=== PATIENT | female | born 1990 | race Caucasian/White ===

== ENCOUNTER → 2017-04-15 10:20 | Outpatient (CLI) | payer MEDICAID, SELFPAY ==
[2017-04-15 11:13] LABS: ALB/GLOB Ratio 0.9 RATIO (0.9-2.4); AST(SGOT) 14 U/L (15-37); Alanine Aminotransfer ALT/SGPT 29 U/L (13-56); Albumin, Serum 3.5 g/dL (3.2-5.0); Alkaline Phosphatase 62 U/L (45-117); Anion Gap 10 (5-15); BUN 9 mg/dL (7-18); BUN/Creat Ratio 11.2 RATIO (10-20); Calcium,Total 8.7 mg/dL (8.5-10.1); Chloride 108 mmol/L (98-107); Cholesterol 160 mg/dL (200); EST Glomerular Filtration Rate 90 mL/min (>60); Est Glom Filt Rate - Afr Amer 109 mL/min (>60); Globulin 3.7 g/dL (2.2-4.2); Glucose 101 mg/dL (74-106); High Density Lipoprotein 33 mg/dL; Protein, Total 7.2 g/dL (6.4-8.2); Sodium Level 139 mmol/L (136-145); Triglycerides 77 mg/dL; Very Low Density Lipoprotein 15 mg/dL (5-40)
== END ==
PROVIDERS: Family Provider Internal Medicine; PCP Internal Medicine; Visit Provider Family Medicine
DX: Z13.1 Encounter for screening for diabetes mellitus (principal); Z13.220 Encounter for screening for lipoid disorders
CPT/HCPCS: 80053; 80061

== ENCOUNTER → 2017-04-15 10:33 | Outpatient (CLI) | payer MEDICAID, SELFPAY | PROVIDERS: Family Provider Internal Medicine; PCP Internal Medicine; Visit Provider Family Medicine | DX: Z13.1 Encounter for screening for diabetes mellitus (principal); Z13.220 Encounter for screening for lipoid disorders ==

== ENCOUNTER → 2017-12-17 17:13 | Outpatient (CLI) | payer MEDICAID, SELFPAY ==
[2017-12-17 17:54] LABS: Hemoglobin A1c 5.6 % (4.2-6.3)
[2017-12-17 18:06] LABS: Free T3 2.7 pg/mL (2.18-3.98); T4 Free Direct 0.95 ng/dL (0.76-1.46); Thyroid Stim Hormone (TSH) 1.08 uIU/mL (0.358-3.74)
== END ==
PROVIDERS: Referring Provider Family Medicine; Visit Provider Family Medicine
DX: G44.89 Other headache syndrome (principal); R73.9 Hyperglycemia, unspecified
CPT/HCPCS: 83036; 84439; 84443; 84481

== ENCOUNTER 2018-06-27 20:00 | Emergency (ER) | payer BC, SELFPAY ==
[2018-06-27 20:02] VITALS: BP 144/78; PULSE 100; RESP 18; TEMP 36.4; O2SAT 99; BMI 43.5
--- NOTE | 2018-06-27 20:20 | RAD_ITS ---
STUDY: X-RAY - RIGHT ANKLE REASON FOR EXAM: Female, 27 years old. Trauma TECHNIQUE: 3 view(s) of the ankle. COMPARISON: None. FINDINGS: Normal visualized distal tibia and fibula. Normal medial and lateral malleoli. Normal tibiotalar articulation and ankle mortise. Normal visualized talus and calcaneus. The visualized subtalar, talonavicular, calcaneocuboid and tarsal articulations are normal. There is soft tissue swelling over the lateral malleolus. RAD/Ankle min 3 Views IMPRESSION: There is no evidence of fracture or dislocation. There is soft tissue swelling over the lateral malleolus. Electronically Signed: Leonel Lazaro MD at 20:47 EDT , Service support ,
--- NOTE | 2018-06-27 20:21 | ED.DCSUM_ITS ---
- ER Visit Summary Date of Service: 06/27/18 Chief Complaint: Ankle injury History of Present Illness: The patient is a 27 F who was bouncing a bounce house when she sustained an inversion injury to the right ankle. She also notes some rug barnes to the bilateral forearms. No other injuries. Physical Examination: Afebrile vital signs stable Gen: Well-nourished well-developed Head: Normocephalic atraumatic Eyes: Perrl EOMI ENT: TMs clear no rhinorrhea moist mucous membranes Neck: Supple no lymphadenopathy no JVD nontender CVS: Regular rate rhythm no murmurs normal S1-S2 Respiratory: No distress clear to auscultation bilaterally chest nontender Abdomen: Soft nontender nondistended normal bowel sounds no masses Back: Nontender Extremity: There is swelling over the lateral malleolus. No fifth metatarsal pain no fibular head pain. No medial malleolar pain the Achilles tendon is intact. There are bilateral superficial abrasions to the volar aspect of the forearms. Skin: Normal color no rash Neuro: alert orientated ?3 CN II-XII intact normal strength sensation reflexes gait cerebellar Psych: Normal affect normal mood Test Results: X-rays were obtained. These were negative for fracture. Noted soft tissue swelling. Emergency Department Course and Treatment: I spoke with Dr. Mendez from podiatry. Concerned about the possibility of a nondisplaced Morrow B fracture. We reviewed the films and we will place her in a walking boot. She will follow-up in the office. Impression: 1. Right ankle sprain This note was generated with Scaffold dictation software. It may contain incorrect words, spelling, and punctuation that were not noted in review of the chart prior to signing ED Disposition - Plan for ED Patient: Disposition: Home or Assisted Living Instructions: ED Sprain Ankle W X Ray Prescriptions: Hydrocodone Bitart/Apap 5-325 [[place] 5MG-325MG] 1 tab PO Q6H PRN PRN 3 Days #10 tab PRN Reason: Pain Referrals: Dewey Mendez DPM [STAFF PHYSICIAN] - (call to arrange follow up)
[2018-06-27] MEDS: HYDROcodone Bitartrate/Apap 5/325 Tablet PO (22:05)
--- NOTE | 2018-06-27 22:27 | ED.RN ---
PT FAILED AIR CAST, UNABLE TO AMBULATE. MD ORDERED WALKING BOOT AND CRUTCHES, PT ABLE TO AMBULATE WITH BOOT IN PLACE AND CRUTCHES FOR ASSISTANCE. AMBULATED OUT OF DEPT.
== END 2018-06-27 22:27 | disposition home or self-care (01) ==
PROVIDERS: Emergency Provider Emergency Medicine; Family Provider Family Medicine; PCP Family Medicine
DX: S93.401A Sprain of unspecified ligament of right ankle, initial encounter (principal); S50.812A Abrasion of left forearm, initial encounter; S50.811A Abrasion of right forearm, initial encounter; X50.1XXA Overexertion from prolonged static or awkward postures, initial encounter; Y93.9 Activity, unspecified; Y92.9 Unspecified place or not applicable; Z72.0 Tobacco use
CPT/HCPCS: 73610; 99283

== ENCOUNTER 2018-10-19 17:11 | Emergency (ER) | payer BC, SELFPAY ==
[2018-10-19 17:14] VITALS: BP 130/81; PULSE 81; RESP 14; TEMP 36.1; O2SAT 95; BMI 34.4
--- NOTE | 2018-10-19 17:34 | ED.VIS.GEN ---
History of Present Illness Chief Complaint: Lower Extremity Injury Detail of Chief Complaint: Right leg redness and swelling Informant: Patient Onset: Today Context: Gradual Onset Current Severity: Moderate Maximum Severity: Moderate Narrative: Patient presents with redness and swelling to the right lower extremity. She stated this morning she noted a small red area on the back of her right lower leg. She denies being bitten by anything or any other injury. The redness has spread and become more painful. She denies history of blood clots. Past Medical History - Allergies and Home Meds Allergies/Adverse Reactions: Allergies morphine Allergy (Verified 10/19/18 17:12) Other Primary Care Physician: Miranda Reyes MD [Primary Care Provider] - Prior records reviewed: Yes Past Medical History: - - Reviewed Smoking Status: Current every day smoker Review of Systems General: Denies: Chills, Fever ENT: Denies: Bilateral ear pain Cardiovascular: Denies: Chest pain Respiratory: Denies: Dyspnea Gastrointestinal: Denies: Abdominal pain Musculoskeletal: Reports: Myalgias, Swelling, Extremity Pain Skin: Reports: Rash Neurological: Denies: Headache Hematologic: Denies: Easy bruising Allergy: Denies: Uticaria Physical Exam Vital Signs/Narrative: Vital Signs Temp Pulse Resp BP Pulse Ox 10/19/18 17:14 96.9 F L 81 14 130/81 H 95 Inital Vital Signs reviewed: Yes General: Well nourished, Well developed Head: Normocephalic ENT: Moist mucous membranes Neck: Supple, Nontender Cardiovascular: Regular rate, Regular rhythm Respiratory: No distress, CTA bilaterally Abdomen: Soft Extremities: Tenderness - Tenderness palpation over the right calf. Minimal edema noted. Patchy areas of erythema are noted. No open wounds are noted. Neurological: Alert, Oriented x3 Psychological: Normal affect Diagnostic/Tx/Re-eval - Medical Decision Making Venous ultrasound of the right leg is obtained and reveals no evidence of DVT. Test results are discussed with the patient at bedside. She continues to have some erythema and warmth, although it is slightly improved after having her feet elevated. She will be covered with doxycycline. ED Disposition - Plan for ED Patient: Disposition: Home or Assisted Living Diagnosis: Cellulitis Instructions: Cellulitis Prescriptions: Doxycycline 100 mg PO BID #20 capsule Referrals: Miranda Reyes MD [Primary Care Provider] - 1 Week
--- NOTE | 2018-10-19 17:39 | US_ITS ---
STUDY: VENOUS DOPPLER ULTRASOUND - RIGHT LOWER EXTREMITY REASON FOR EXAM: Female, 28 years old. Pain and swelling TECHNIQUE: Ultrasound evaluation of the deep vein system to include benavides-scale imaging and compression was performed. Benavides-scale imaging and Doppler sonographic evaluation, including duplex spectral analysis and qualitative color flow sonography, was performed. COMPARISON: None. FINDINGS: Common Femoral Vein: Normal compression, spontaneity and augmentation. Normal color Doppler. Common Femoral Vein/Greater Saphenous Junction: Normal compression, spontaneity and augmentation. Normal color Doppler. Femoral Proximal: Normal compression, spontaneity and augmentation. Normal color Doppler. Femoral Middle: Normal compression, spontaneity and augmentation. Normal color Doppler. Femoral Distal: Normal compression, spontaneity and augmentation. Normal color Doppler. Popliteal Vein: Normal compression, spontaneity and augmentation. Normal color Doppler. Posterior Tibial Vein: Normal compression, spontaneity and augmentation. Normal color Doppler. Peroneal Vein: Normal compression, spontaneity and augmentation. Normal color Doppler. US/Venous Duplex Imag/Limited/Uni IMPRESSION: Normal venous Doppler ultrasound of the lower extremity. No evidence of DVT on the right. Electronically Signed: Marlon Manzo MD at 18:23 EDT Tel [phone], Service support ,
[2018-10-19 18:27] VITALS: BP 122/85; PULSE 66; RESP 18; TEMP 36.7; O2SAT 99
[2018-10-19] MEDS: Doxycycline 100 MG CAPSULE PO (18:27)
== END 2018-10-19 18:33 | disposition home or self-care (01) ==
LOC: ED 18:22
PROVIDERS: Emergency Provider Emergency Medicine; Family Provider Family Medicine; PCP Family Medicine
DX: L03.115 Cellulitis of right lower limb (principal); F17.200 Nicotine dependence, unspecified, uncomplicated
CPT/HCPCS: 93971; 99283

== ENCOUNTER → 2020-01-11 | Outpatient (CLI) | payer BC, SELFPAY ==
[2020-01-12 10:14] LABS: Absolute Lymphocyte Count 2.86 X10^3/uL (0.83-4.51); Absolute Neutrophil Count 5.7 X10^3/uL (2.0-7.7); Basophil# 0.07 X10^3/uL; Basophil% 0.7 % (0-1); Eosinophil# 0.22 X10^3/uL; Eosinophils% 2.3 % (0-5); Hematocrit 43.8 % (37-47); Hemoglobin 14.2 g/dL (12.0-15.0); Lymphocyte # 2.86 X10^3/ul (4.0); Mean Corp Hgb Conc 32.4 g/dL (32-36); Mean Corpuscular Hgb 28.2 pg (27.0-32.0); Mean Corpuscular Volume 86.9 fL (81-99); Mean Platelet Vol. 12.6 fl (6.2-12.0); Monocyte# 0.65 X10^3/uL; Monocyte% 6.8 % (0-10); NRBC Flagged by Analyzer 0 % (0-5); Neutrophil # 5.71 X10^3/uL (2.7-7.7); Neutrophil % 59.9 % (47-70); Platelet Count 225 K/mm3 (150-450); RBC Distribution Width CV 12.3 % (11.6-14.6); RBC Distribution Width SD 39.2 fl (35.1-43.9); Red Blood Count 5.04 M/mm3 (4.2-5.4); White Blood Count 9.5 K/mm3 (4.4-11.0)
[2020-01-12 10:37] LABS: AST(SGOT) 11 U/L (15-37); Alanine Aminotransfer ALT/SGPT 34 U/L (13-56); Albumin, Serum 3.7 g/dL (3.2-5.0); Alkaline Phosphatase 63 U/L (45-117); Anion Gap 4 (5-15); BUN 11 mg/dL (7-18); BUN/Creat Ratio 13.2 RATIO (10-20); Calcium,Total 8.9 mg/dL (8.5-10.1); Chloride 107 mmol/L (98-107); Cholesterol 198 mg/dL (200); Creatinine, Serum 0.84 mg/dL (0.55-1.02); EST Glomerular Filtration Rate 84 mL/min (>60); Est Glom Filt Rate - Afr Amer 102 mL/min (>60); Globulin 3.6 g/dL (2.2-4.2); Glucose 92 mg/dL (74-106); High Density Lipoprotein 41 mg/dL; Potassium 4.2 mmol/L (3.5-5.1); Protein, Total 7.3 g/dL (6.4-8.2); Sodium Level 140 mmol/L (136-145); T4 Free Direct 1.05 ng/dL (0.76-1.46); Thyroid Stim Hormone (TSH) 1.38 uIU/mL (0.358-3.74); Triglycerides 130 mg/dL; Very Low Density Lipoprotein 26 mg/dL (5-40)
== END | disposition home or self-care (01) ==
LOC: LABSPEC 01-12 09:36
PROVIDERS: PCP Family Medicine; Referring Provider Family Medicine; Visit Provider Family Medicine
DX: Z00.00 Encounter for general adult medical examination without abnormal findings (principal); R53.83 Other fatigue; N91.2 Amenorrhea, unspecified
CPT/HCPCS: 80053; 80061; 83001; 84439; 84443; 84481; 85025

== ENCOUNTER → 2020-02-09 | Outpatient (CLI) | payer BC, SELFPAY ==
[2020-02-09 14:42] VITALS: BMI 43.0
[2020-02-09 18:56] LABS: Chlamydia Trachomatis by PCR Negative (Negative); Neisserai gonorrhoeae by PCR Negative (Negative); Probe Check PASS; Sample Adequacy Control PASS; Specimen Processing Control PASS
[2020-02-14 21:36] LABS: HPV APTIMA, High Risk Negative (Negative)
== END | disposition home or self-care (01) ==
LOC: LABSPEC 15:57
PROVIDERS: PCP Family Medicine; Referring Provider Nurse Practitioner Women's Health; Visit Provider Nurse Practitioner Women's Health
DX: Z11.3 Encounter for screening for infections with a predominantly sexual mode of transmission (principal); Z12.4 Encounter for screening for malignant neoplasm of cervix
CPT/HCPCS: 87491; 87591; 87624; 88175; G0145

== ENCOUNTER → 2021-07-02 | Outpatient (CLI) | payer OTHER, SELFPAY ==
[2021-07-04 22:06] LABS: Chlamydia By Nucleic Acid AMP Negative (Negative)
[2021-07-05 11:08] LABS: Gonococcus By Nucleic Acid AMP Negative (Negative)
== END | disposition home or self-care (01) ==
LOC: LABSPEC 07-03 09:42
PROVIDERS: PCP Family Medicine; Visit Provider Nurse Practitioner Women's Health
DX: Z20.2 Contact with and (suspected) exposure to infections with a predominantly sexual mode of transmission (principal)
CPT/HCPCS: 87491; 87591

== ENCOUNTER → 2021-07-10 | Outpatient (CLI) | payer OTHER, SELFPAY ==
[2021-07-10 11:06] LABS: hCG Titer Quant., Serum 65 mIU/mL (1-3)
[2021-07-10 11:13] LABS: Thyroid Stim Hormone (TSH) 1.37 uIU/mL (0.358-3.74)
[2021-07-10 11:42] LABS: HIV - WCH Non-Reactive (Nonreactive); Hepatitis C Antibody Non-Reactive (Nonreactive); Syphilis Antibodies Non-reactive; Vitamin D,25 Hydroxy 24.3 ng/mL
[2021-07-11 16:59] LABS: HSV 2 IgG < 0.91 index (0.00-0.90)
== END | disposition home or self-care (01) ==
LOC: PAVLAB 09:45
PROVIDERS: PCP Family Medicine; Referring Provider Nurse Practitioner Women's Health; Visit Provider Nurse Practitioner Women's Health
DX: N91.2 Amenorrhea, unspecified (principal); Z13.21 Encounter for screening for nutritional disorder; Z20.2 Contact with and (suspected) exposure to infections with a predominantly sexual mode of transmission; Z13.29 Encounter for screening for other suspected endocrine disorder
CPT/HCPCS: 36415; 82306; 84443; 84702; 86695; 86696; 86703; 86780; 86803

== ENCOUNTER 2021-07-15 14:20 | Emergency (ER) | payer OTHER, SELFPAY ==
[2021-07-15 14:21] VITALS: BP 145/82; PULSE 90; RESP 18; TEMP 37.1; O2SAT 98; BMI 43.9
--- NOTE | 2021-07-15 14:38 | ED.RN ---
PT STATES SHE IS RH-
--- NOTE | 2021-07-15 14:55 | EDS_ITS ---
HPI HPI - Female History of Present Illness Chief Complaint: Vag Bld, Preg Narrative Narrative: Patient is a G2, P0 at approximately 5 weeks gestation who presents with vaginal bleeding/spotting that began a few hours ago. She notes that she is Rh- and was told by her DIRECTOR OF USER EXPERIENCE to present to the emergency department if she ever experience vaginal bleeding. She states she is having vaginal cramping but denies any lightheadedness, chest pain, shortness of breath. She is only spotting. No passing of clots or tissue. She has been nauseated throughout her but denies any recent vomiting. No dysuria or hematuria. 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 HEENT: No sore throat. No neck pain. No loss of vision. No rhinorrhea. Cardiovascular: No chest pain. No palpitations. No pedal edema. Respiratory: No cough, no shortness of breath. Abdominal: No abdominal pain. Intermittent nausea. No vomiting. Genitourinary: No dysuria. No hematuria. Genital bleeding/spotting with . Musculoskeletal: No myalgias. No arthralgias. Neurologic: No headaches. No dizziness. No lightheadedness. Skin: No rash. No change in color. Psychiatric: No depression. No anxiety. EXAM Physical Exam Narrative Exam Narrative: Afebrile. Vital signs noted. HEENT: Normocephalic. Atraumatic. PERRL, EOMI. Neck soft and supple. No point tenderness or step off. Cardiovascular: Regular rate and rhythm. No murmurs, rubs, or gallops appreciated. Respiratory: No tachypnea. Lungs clear to auscultation bilaterally. Gastrointestinal: Abdomen soft, nontender, with normoactive bowel sounds. No rebound or guarding. Neurological: Awake. Alert. Nonfocal, nonlateralizing. Skin: No rash. Normal color. No pallor. Musculoskeletal: No pedal edema. Full range of motion extremities. Const Vital Signs: 07/15/21 14:21 07/15/21 16:44 07/15/21 18:16 Temperature 98.8 F Temperature Source Temporal Pulse Rate 90 84 87 Respiratory Rate 18 17 16 Blood Pressure 145/82 H Blood Pressure Mean 103 Pulse Ox 98 99 Oxygen Delivery Method Room Air Room Air MDM MDM MDM Narrative Medical decision making narrative: Comprehensive work-up was pursued. I will order hCG quantitative measurement along with ABO Rh, and CBC. Chaperoned pelvic exam will be performed. Transvaginal ultrasound will also be performed. CBC shows normal white count of 10.0, hemoglobin normal at 13.8, normal platelet count of 219. Blood type is a negative. hCG quantitative measurement is 543. Urinalysis shows no evidence of infection. Ultrasound transvaginally was performed, but given her low quantitative measurement less than 2000, it was expected that nothing would be seen on ultrasound. Ectopic cannot be ruled out. However, the patient is not having adnexal pain. I discussed the patient with Dr. Love on-call for her DIRECTOR OF USER EXPERIENCE. Patient will have follow- up appointment in 2 days where she will have her quantitative beta-hCG measured again. She will receive RhoGAM here today. Of note, patient did state that she had a beta-hCG in the 60s a few days ago so this has more than doubled. I feel that after her RhoGAM, she can be discharged to follow-up with DIRECTOR OF USER EXPERIENCE in 2 days for quantitative beta hCG repeat, and further on down the road for an ultrasound that would be repeated. Disposition is discharged home in stable condition. Lab Data Attestation: I reviewed the patient's lab results. Labs: Laboratory Results - last 24 hr 07/15/21 07/15/21 07/15/21 15:30 15:30 15:30 WBC 10.0 RBC 4.82 Hgb 13.8 Hct 42.5 MCV 88.2 MCH 28.6 MCHC 32.5 RDW Std Deviation 40.2 RDW Coeff of Ester 12.5 Plt Count 219 MPV 11.9 Immature Gran % (Auto) 0.600 Neut % (Auto) 62.1 Lymph % (Auto) 29.1 Lincoln % (Auto) 6.1 Eos % (Auto) 1.5 Baso % (Auto) 0.6 Absolute Neuts (auto) 6.2 Absolute Lymphs (auto) 2.91 Nucleated RBC % 0 HCG, Quant 543 H Urine Color Urine Clarity Urine pH Ur Specific [place] Urine Protein Urine Glucose (UA) Urine Ketones Urine Occult Blood Urine Nitrite Urine Bilirubin Urine Urobilinogen Ur Leukocyte Esterase Urine RBC Urine WBC Ur Squamous Epith Cells Urine Bacteria Urine Mucus Blood Type A NEGATIVE 07/15/21 16:10 WBC RBC Hgb Hct MCV MCH MCHC RDW Std Deviation RDW Coeff of Ester Plt Count MPV Immature Gran % (Auto) Neut % (Auto) Lymph % (Auto) [place] % (Auto) Eos % (Auto) Baso % (Auto) Absolute Neuts (auto) Absolute Lymphs (auto) Nucleated RBC % HCG, Quant Urine Color Straw Urine Clarity Clear Urine pH 6.5 Ur Specific [place] 1.010 Urine Protein Negative Urine Glucose (UA) Normal Urine Ketones Negative Urine Occult Blood 10 H Urine Nitrite Negative Urine Bilirubin Negative Urine Urobilinogen Normal Ur Leukocyte Esterase Negative Urine RBC 0 SEEN Urine WBC 0 SEEN Ur Squamous Epith Cells 0 SEEN Urine Bacteria 0 SEEN Urine Mucus 0 SEEN Blood Type Radiography Diagnostic Testing: Clinical Impression(s) from Imaging Studies Obstetrics Ultrasound 07/15/21 14:56 IMPRESSION: of unknown location. No intrauterine gestational sac or adnexal ectopic visualized. Recommend serial beta hCGs and follow-up OB ultrasound in 1-2 weeks. Electronically Signed: Fercho Dunn MD at 17:29 EDT , Discharge Plan Triage Chief Complaint: Vag Bld, Preg ED Provider: Judson Arreola Dx/Rx/DC Orders Clinical Impression: Vaginal bleeding during , Threatened Instructions: Bleeding During Early , ED Possible Miscarriage ... Prescriptions: No Action multivitamin Tablet 1 tab PO DAILY RF: 0 Primary Care Provider: Miranda Reyes Referrals: Miranda Reyes MD [Primary Care Provider] - Zoya Love MD [STAFF PHYSICIAN] - 2 Days Activity Restrictions/Additional Instructions: You have a low beta hCG measurement. You will have to have blood work redrawn in 2 days to see if it doubles. Follow-up with DIRECTOR OF USER EXPERIENCE/Dr. Stas Bhatti in 2 days. You did receive RhoGAM today. Disposition Disposition: Home, Self Care Discharge Date/Time: 07/15/21 19:57
--- NOTE | 2021-07-15 14:56 | US_ITS ---
INDICATION: Vaginal Bleeding witih EXAMINATION: US OB Transvaginal TECHNIQUE: Transabdominal pelvic ultrasound was performed. Grayscale, spectral waveform, and color flow Doppler evaluation of the adnexa. COMPARISON: None. FINDINGS: UTERUS: Measures 8.7 x 5.0 4.6 cm. RIGHT OVARY: Measures 2.5 x 2.1 x 1.7 cm. Normal. LEFT OVARY: Measures 2.2 x 2 x 1.7 cm. Normal. FREE FLUID: None. INTRAUTERINE GESTATIONAL SAC(s) (size/shape): Not visualized. No adnexal ectopic visualized. US/Transvaginal w/Preg US IMPRESSION: of unknown location. No intrauterine gestational sac or adnexal ectopic visualized. Recommend serial beta hCGs and follow-up OB ultrasound in 1-2 weeks. Electronically Signed: Fercho Dunn MD at 17:29 EDT ,
[2021-07-15 15:42] LABS: Absolute Lymphocyte Count 2.91 X10^3/uL (0.83-4.51); Absolute Neutrophil Count 6.2 X10^3/uL (2.0-7.7); Basophil# 0.06 X10^3/uL; Basophil% 0.6 % (0-1); Eosinophil# 0.15 X10^3/uL; Eosinophils% 1.5 % (0-5); Hematocrit 42.5 % (37-47); Hemoglobin 13.8 g/dL (12.0-15.0); Lymphocyte # 2.91 X10^3/ul (0.83-4.51); Lymphocyte % 29.1 % (19-41); Mean Corp Hgb Conc 32.5 g/dL (32-36); Mean Corpuscular Hgb 28.6 pg (27.0-32.0); Mean Corpuscular Volume 88.2 fL (81-99); Mean Platelet Vol. 11.9 fl (6.2-12.0); Monocyte# 0.61 X10^3/uL; Monocyte% 6.1 % (0-10); NRBC Flagged by Analyzer 0 % (0-5); Neutrophil % 62.1 % (47-70); Platelet Count 219 K/mm3 (150-450); RBC Distribution Width CV 12.5 % (11.6-14.6); RBC Distribution Width SD 40.2 fl (35.1-43.9); Red Blood Count 4.82 M/mm3 (4.2-5.4)
[2021-07-15 15:59] LABS: hCG Titer Quant., Serum 543 mIU/mL (1-3)
[2021-07-15 16:15] LABS: Bacteria 0 SEEN /hpf (None Seen); Mucous, Urine 0 SEEN /hpf (<or=2+); Red Blood Cells-Urine 0 SEEN /hpf (0-5); Squamous Epithelial Cells - UA 0 SEEN /hpf (5-10); White Blood Cells 0 SEEN /hpf (0-5)
[2021-07-15 16:16] LABS: Color, Urine Straw (Yellow); Glucose, Dipstick Normal (Normal); Ketone-Dipstick Negative (Negative); Leukocyte Esterase-Dipstick Negative /ul (Negative); Nitrite-Dipstick Negative (Negative); Occult Blood-Urine 10 /ul (Negative); Protein-Dipstick Negative (Negative); Urine Bilirubin Dipstick Negative (Negative); Urine Clarity Clear (Clear); Urine Urobilinogen Normal (Normal); Urine pH 6.5 (5.0 - 8.0)
[2021-07-15 16:44] VITALS: PULSE 84; RESP 17; O2SAT 99
[2021-07-15 18:16] VITALS: PULSE 87; RESP 16
== END 2021-07-15 19:57 | disposition home or self-care (01) ==
PROVIDERS: Emergency Provider Emergency Medicine; PCP Family Medicine; Visit Provider Emergency Medicine
DX: O20.0 Threatened abortion (principal); Z3A.01 Less than 8 weeks gestation of pregnancy; O99.331 Smoking (tobacco) complicating pregnancy, first trimester; F17.200 Nicotine dependence, unspecified, uncomplicated
CPT/HCPCS: 76817; 81001; 84702; 85025; 86900; 86901; 90384; 96372; 99283; A4216; J2790

== ENCOUNTER → 2021-07-17 | Outpatient (CLI) | payer OTHER, SELFPAY ==
[2021-07-17 13:36] LABS: hCG Titer Quant., Serum 386 mIU/mL (1-3)
== END | disposition home or self-care (01) ==
LOC: PAVLAB 12:50
PROVIDERS: PCP Family Medicine; Referring Provider Obstetrics & Gynecology; Visit Provider Obstetrics & Gynecology
DX: O20.0 Threatened abortion (principal); Z3A.00 Weeks of gestation of pregnancy not specified
CPT/HCPCS: 36415; 84702

== ENCOUNTER → 2021-07-20 | Outpatient (CLI) | payer OTHER, SELFPAY ==
[2021-07-20 12:00] LABS: hCG Titer Quant., Serum 151 mIU/mL (1-3)
== END | disposition home or self-care (01) ==
PROVIDERS: PCP Family Medicine; Referring Provider Obstetrics & Gynecology; Visit Provider Obstetrics & Gynecology
DX: O20.0 Threatened abortion (principal); Z3A.00 Weeks of gestation of pregnancy not specified
CPT/HCPCS: 36415; 84702

== ENCOUNTER → 2021-07-24 | Outpatient (CLI) | payer OTHER, SELFPAY ==
[2021-07-24 11:59] LABS: hCG Titer Quant., Serum 13 mIU/mL (1-3)
== END | disposition home or self-care (01) ==
LOC: PAVLAB 10:44
PROVIDERS: PCP Family Medicine; Referring Provider Obstetrics & Gynecology; Visit Provider Obstetrics & Gynecology
DX: O20.0 Threatened abortion (principal); Z3A.00 Weeks of gestation of pregnancy not specified
CPT/HCPCS: 36415; 84702

== ENCOUNTER → 2021-08-27 | Outpatient (CLI) | payer MEDICAID, SELFPAY ==
[2021-08-27 18:40] LABS: hCG Titer Quant., Serum 29 mIU/mL (1-3)
== END | disposition home or self-care (01) ==
PROVIDERS: PCP Family Medicine; Visit Provider Obstetrics & Gynecology
DX: N91.2 Amenorrhea, unspecified (principal)
CPT/HCPCS: 36415; 84702

== ENCOUNTER → 2021-08-29 | Outpatient (CLI) | payer MEDICAID, SELFPAY ==
[2021-08-29 13:37] LABS: hCG Titer Quant., Serum 64 mIU/mL (1-3)
== END | disposition home or self-care (01) ==
LOC: PAVLAB 12:46
PROVIDERS: PCP Family Medicine; Referring Provider Obstetrics & Gynecology; Visit Provider Obstetrics & Gynecology
DX: N91.2 Amenorrhea, unspecified (principal)
CPT/HCPCS: 36415; 84702

== ENCOUNTER → 2021-09-04 | Outpatient (CLI) | payer MEDICAID, SELFPAY ==
[2021-09-04 10:48] LABS: hCG Titer Quant., Serum 65 mIU/mL (1-3)
== END | disposition home or self-care (01) ==
LOC: PAVLAB 09:58
PROVIDERS: PCP Family Medicine; Referring Provider Nurse Practitioner Women's Health; Visit Provider Nurse Practitioner Women's Health
DX: O20.0 Threatened abortion (principal); Z3A.00 Weeks of gestation of pregnancy not specified
CPT/HCPCS: 36415; 84702

== ENCOUNTER → 2021-09-06 | Outpatient (CLI) | payer MEDICAID, SELFPAY ==
[2021-09-06 08:36] LABS: Cholesterol 191 mg/dL (200); Glucose 103 mg/dL (74-106); High Density Lipoprotein 32 mg/dL; Triglycerides 170 mg/dL; Very Low Density Lipoprotein 34 mg/dL (5-40); hCG Titer Quant., Serum 22 mIU/mL (1-3)
== END | disposition home or self-care (01) ==
LOC: PAVLAB 07:34
PROVIDERS: Nurse Practitioner Women's Health; PCP Family Medicine; Referring Provider Obstetrics & Gynecology; Visit Provider Obstetrics & Gynecology
DX: O03.9 Complete or unspecified spontaneous abortion without complication (principal); Z13.1 Encounter for screening for diabetes mellitus; Z13.220 Encounter for screening for lipoid disorders
CPT/HCPCS: 36415; 80061; 82947; 84702

== ENCOUNTER → 2021-09-21 | Outpatient (CLI) | payer MEDICAID, SELFPAY ==
[2021-09-21 09:46] LABS: hCG Titer Quant., Serum < 1 mIU/mL (1-3)
[2021-09-24 16:09] LABS: Dilute Prothrombin Time (dPT) 37.8 sec (0.0-47.6); Dilute Russell Viper Venom 38.7 sec (0.0-47.0); PTT-LA 37.4 sec (0.0-51.9); Thrombin Time 17.3 sec (0.0-23.0)
[2021-09-24 16:25] LABS: Anti-Cardiolipin Ab, IgA, Qn < 9 APL U/mL (0-11); Anti-Cardiolipin Ab, IgG, Qn < 9 GPL U/mL (0-14); Anti-Cardiolipin Ab, IgM, Qn 15 MPL U/mL (0-12); Beta-2-Glycoprotein I IgA <9 (0-25); Beta-2-Glycoprotein I IgG <9 (0-20); Beta-2-Glycoprotein I IgM <9 (0-32); Interpretation Comment: (.)
== END | disposition home or self-care (01) ==
PROVIDERS: PCP Family Medicine; Referring Provider Obstetrics & Gynecology; Visit Provider Obstetrics & Gynecology
DX: N96 Recurrent pregnancy loss (principal)
CPT/HCPCS: 36415; 84702; 86146; 86147

== ENCOUNTER 2021-10-03 17:02 | Emergency (ER) | payer MEDICAID, SELFPAY ==
[2021-10-03 17:03] VITALS: BP 97/57; PULSE 99; RESP 16; TEMP 36.7; O2SAT 98; BMI 44.0
--- NOTE | 2021-10-03 18:19 | US_ITS ---
STUDY: VENOUS DOPPLER ULTRASOUND - RIGHT LOWER EXTREMITY REASON FOR EXAM: Female, 31 years old. RT LEG NUMBNESS TINGLING PAIN TECHNIQUE: Ultrasound evaluation of the deep vein system to include benavides-scale imaging and compression was performed. Benavides-scale imaging and Doppler sonographic evaluation, including duplex spectral analysis and qualitative color flow sonography, was performed. COMPARISON: None. FINDINGS: Common Femoral Vein: Normal compression, spontaneity and augmentation. Normal color Doppler. Common Femoral Vein/Greater Saphenous Junction: Normal compression, spontaneity and augmentation. Normal color Doppler. Deep Femoral Vein: Normal compression, spontaneity and augmentation. Normal color Doppler. Femoral Proximal: Normal compression, spontaneity and augmentation. Normal color Doppler. Femoral Middle: Normal compression, spontaneity and augmentation. Normal color Doppler. Femoral Distal: Normal compression, spontaneity and augmentation. Normal color Doppler. Popliteal Vein: Normal compression, spontaneity and augmentation. Normal color Doppler. Posterior Tibial Vein: Normal compression, spontaneity and augmentation. Normal color Doppler. Peroneal Vein: Normal compression, spontaneity and augmentation. Normal color Doppler. There is no demonstrated deep venous thrombosis. US/Venous Duplex Imag/Limited/Uni IMPRESSION: Normal venous Doppler ultrasound of the lower extremity. Electronically Signed: Rishabh Cuba MD at 19:29 EDT Reading Location ID and State: [facility] / [place] , Service support ,
--- NOTE | 2021-10-03 19:25 | EDS_ITS ---
HPI History of Present Illness Chief Complaint: Lower Extremity Injury Informant: patient Narrative Narrative: Patient is a 31-year-old female with history of sciatica with as well as recent diagnosis of antiphospholipid antibody syndrome presenting with worsening right leg pain. Patient states has been going on for the past few weeks has been intermittent however its been more constant over the past few days. She describes as burning in her calf that goes up behind her knee and sometimes into her back. Sometimes she has a sharp pain in her quadricep in her calf. Is on a daily aspirin does not take anything else for the pain. Not sure if she is had swelling of the leg. Denies any injury. Denies any recent trips. Denies any chest pain, shortness of breath or other symptoms. Note she did have sciatica when she was and is not sure if this feels different. Denies any saddle anesthesia, bowel or bladder incontinence. [facility] Medical History HSV-1 infection Home Medications enoxaparin 40 mg/0.4 mL subcutaneous syringe (Lovenox) 40 mg (0.4 mL) subcut DAILY #30 mL 09/27/21 [Rx Last Taken Unknown] Allergy/AdvReac Type Severity Reaction Status Date / Time doxycycline Allergy Intermediate Rash Verified 10/03/21 17:02 morphine Allergy Other Verified 10/03/21 17:02 Family History Father Barretts esophagus Skin cancer Diabetes Hypertension Grandfather Lung cancer Liver cancer Uncle Skin cancer Social History household members: children number of children: 1 current occupational status: employed 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[employer] history of recent travel: No sexually active: No Smoking Status: Light Smoker (<10/day) alcohol intake: current alcohol intake frequency: holidays/special occasions only substance use type: does not use what type of physical activity do you participate in: none seatbelt use: always do you feel safe at home: Yes additional social history: single ROS ROS ED Constitutional Constitutional ED: Denies chills or fever(s) Eyes Eyes: Denies change in vision ENT ENT ED: Denies rhinorrhea or sore throat Cardiovascular Cardiovascular: Denies chest pain or palpitations Respiratory/Chest Respiratory/Chest: Denies dyspnea or dyspnea on exertion Gastrointestinal Gastrointestinal: Denies abdominal pain Genitourinary Genitourinary ED: Denies dysuria or urinary frequency Musculoskeletal Musculoskeletal: Reports back pain and myalgias; Denies arthralgias or neck pain Integumentary Denies rash Neurologic Neurologic: Reports paresthesias; Denies headache(s) or weakness Psychiatric Psychiatric: Denies anxiety or depression Hematologic/Lymphatic Hematologic/Lymphatic: Denies easy bleeding or easy bruising EXAM Physical Exam Const Vital Signs: 10/03/21 17:03 Temperature 98.1 F Temperature Source Temporal Pulse Rate 99 Respiratory Rate 16 Blood Pressure 97/57 L Blood Pressure Mean 70 Pulse Ox 98 Oxygen Delivery Method Room Air Positive well nourished and well developed General Appearance ED: well developed and NAD HEENT Reports moist mucous membranes normocephalic Neck full ROM and supple Chest Wall inspection of chest normal Resp normal respiratory effort and no retractions Cardio regular rate, regular rhythm and no murmurs Cardio Narrative: 2+ DP pulses GI non-tender and non-distended Back/Spine no CVA tenderness Back/Spine Narrative: right lumbar tenderness near SI joint Lumbar Spine / Lower Back: straight leg raise negative bilaterally; Negative for lumbar spinal tenderness Extremity normal to inspection and full ROM Extremity Narrative: no cords General Extremety ED: Negative for edema General Extremity: Negative for edema Neuro oriented x3, moves all extremities and no sensory deficits noted Sensorium / Orientation: alert Motor Exam: strength 5/5 throughout Psych mental status grossly normal Skin no wounds Rashes: no rashes MDM MDM MDM Narrative Medical decision making narrative: Patient evaluated for atraumatic pain with associated numbness and tingling of her right lower extremity. Seems to follow the sciatic nerve distribution however she has negative straight leg test and does intermittently have some quadricep pain as well. She is neurovascularly intact. Do not appreciate any p alpable cords and venous duplex is negative for DVT. I suspect this is muscle skeletal pain and possibly stemming from her back. She not having red flag symptoms consistent with cauda equina syndrome. Will discharge to follow-up with primary care doctor. Counseled alternate ibuprofen and Tylenol. Counseled on return precautions. Discharge Plan Triage Chief Complaint: Lower Extremity Injury ED Provider: Amirah Mcmahon Dx/Rx/DC Orders Clinical Impression: Acute pain of right lower extremity, Right low back pain Instructions: ED Back Pain (Acute or Chronic), ED Myalgias Prescriptions: No Action enoxaparin [Lovenox] 40 mg/0.4 mL syringe 40 mg subcut DAILY Qty: 30 7RF Hold Instructions: Begin when . Primary Care Provider: Miranda Reyes Referrals: Miranda Reyes MD [Primary Care Provider] - Activity Restrictions/Additional Instructions: Your ultrasound was negative for blood clot in your leg. I suspect the pain is coming from your back. Please follow-up with your primary care doctor if no improvement with stretching and alternating ibuprofen and Tylenol. Disposition Disposition: Home, Self Care
== END 2021-10-03 19:31 | disposition home or self-care (01) ==
PROVIDERS: Emergency Provider Emergency Medicine; PCP Family Medicine; Visit Provider Emergency Medicine
DX: M54.50 Low back pain, unspecified (principal); D68.61 Antiphospholipid syndrome; M79.605 Pain in left leg
CPT/HCPCS: 93971; 99282

== ENCOUNTER → 2021-10-12 | Outpatient (CLI) | payer MEDICAID, SELFPAY ==
[2021-10-12 11:18] LABS: hCG Titer Quant., Serum 38 mIU/mL (1-3)
== END | disposition home or self-care (01) ==
LOC: LAB 09:59
PROVIDERS: PCP Family Medicine; Visit Provider Obstetrics & Gynecology
DX: N92.6 Irregular menstruation, unspecified (principal)
CPT/HCPCS: 36415; 84702

== ENCOUNTER → 2021-10-14 | Outpatient (CLI) | payer MEDICAID, SELFPAY ==
[2021-10-14 15:47] LABS: hCG Titer Quant., Serum 33 mIU/mL (1-3)
== END | disposition home or self-care (01) ==
LOC: LAB 14:45
PROVIDERS: PCP Family Medicine; Visit Provider Obstetrics & Gynecology
DX: N92.6 Irregular menstruation, unspecified (principal)
CPT/HCPCS: 36415; 84702

== ENCOUNTER → 2021-10-16 | Outpatient (CLI) | payer MEDICAID, SELFPAY ==
[2021-10-16 09:05] LABS: hCG Titer Quant., Serum 40 mIU/mL (1-3)
== END | disposition home or self-care (01) ==
LOC: PAVLAB 08:22
PROVIDERS: PCP Family Medicine; Referring Provider Obstetrics & Gynecology; Visit Provider Obstetrics & Gynecology
DX: N92.0 Excessive and frequent menstruation with regular cycle (principal)
CPT/HCPCS: 36415; 84702

== ENCOUNTER → 2021-10-18 | Outpatient (CLI) | payer MEDICAID, SELFPAY ==
[2021-10-18 09:03] LABS: hCG Titer Quant., Serum 35 mIU/mL (1-3)
== END | disposition home or self-care (01) ==
LOC: PAVLAB 08:20
PROVIDERS: PCP Family Medicine; Referring Provider Obstetrics & Gynecology; Visit Provider Obstetrics & Gynecology
DX: N91.2 Amenorrhea, unspecified (principal)
CPT/HCPCS: 36415; 84702

== ENCOUNTER → 2021-10-19 | Outpatient (CLI) | payer MEDICAID, SELFPAY ==
--- NOTE | 2021-10-19 08:42 | US_ITS ---
STUDY: FIRST TRIMESTER OBSTETRICAL ULTRASOUND REASON FOR EXAM: Female, 31 years old amenorrhea -- HCG levels fluctuating LMP: 06/10/2021. TECHNIQUE: Transabdominal TECHNICAL QUALITY: Adequate. PRIOR ULTRASOUND: Comparison is made with prior study dated 07/15/2021. FINDINGS: There is no demonstrated intrauterine gestational sac. There is no demonstrated yolk sac. The placenta is non-visualized. There is no demonstrated embryo ( pole). The uterus measures 9.3 cm x 6.1 cm x 4.3 cm. There is no demonstrated uterine fibroid. The cervix is closed. The right ovary measures 3.2 cm x 2 cm by 2 cm. There is no right ovarian cyst. There is no visualized right adnexal mass or complex lesion. The left ovary measures 2 cm by 1.7 cm x 1.5 cm. There is no left ovarian cyst. There is no visualized left adnexal mass or complex lesion. There is no fluid in the cul de sac. US/Transvaginal w/Preg US IMPRESSION: No intrauterine gestational sac is seen. Electronically Signed: Vinny Krause MD at 10:41 EDT ,
== END | disposition home or self-care (01) ==
LOC: US 08:41
PROVIDERS: PCP Family Medicine; Visit Provider Obstetrics & Gynecology
DX: N91.2 Amenorrhea, unspecified (principal); N96 Recurrent pregnancy loss
CPT/HCPCS: 76817

== ENCOUNTER → 2021-10-20 | Outpatient (CLI) | payer MEDICAID, SELFPAY ==
[2021-10-20 09:41] LABS: hCG Titer Quant., Serum 24 mIU/mL (1-3)
== END | disposition home or self-care (01) ==
LOC: LAB 08:45
PROVIDERS: PCP Family Medicine; Referring Provider Obstetrics & Gynecology; Visit Provider Obstetrics & Gynecology
DX: N96 Recurrent pregnancy loss (principal)
CPT/HCPCS: 36415; 84702

== ENCOUNTER → 2021-10-26 | Outpatient (CLI) | payer MEDICAID, SELFPAY ==
[2021-10-26 10:23] LABS: hCG Titer Quant., Serum 88 mIU/mL (1-3)
== END | disposition home or self-care (01) ==
LOC: LAB 08:45
PROVIDERS: PCP Family Medicine; Referring Provider Obstetrics & Gynecology; Visit Provider Obstetrics & Gynecology
DX: O03.9 Complete or unspecified spontaneous abortion without complication (principal); Z3A.00 Weeks of gestation of pregnancy not specified
CPT/HCPCS: 36415; 84702

== ENCOUNTER → 2021-10-26 | Outpatient (CLI) | payer MEDICAID, SELFPAY ==
--- NOTE | 2021-10-26 18:26 | US_ITS ---
STUDY: FIRST TRIMESTER OBSTETRICAL ULTRASOUND REASON FOR EXAM: Female, 31 years old R/O ECTOPIC ABN HCGS LMP: TECHNIQUE: Transabdominal and Transvaginal TECHNICAL QUALITY: Adequate. PRIOR ULTRASOUND: 10/19/2021 FINDINGS: There is no demonstrated intrauterine gestational sac. The uterus measures 8.7 x 5.6 x 3.7 cm. There is no demonstrated uterine fibroid. The cervix is closed. The right ovary measures 3.6 x 2.2 x 1.9 cm. There is no right ovarian cyst. There is no visualized right adnexal mass or complex lesion. The left ovary measures 2.7 x 1.7 x 1.1 cm. There is no left ovarian cyst. There is no visualized left adnexal mass or complex lesion. There is no fluid in the cul de sac. US/Transvaginal w/Preg US IMPRESSION: Normal pelvic ultrasound without an intrauterine gestational sac. Differential diagnosis includes an early intrauterine , early ectopic , or missed . Correlation with serial beta-hCG measurements is recommended. Electronically Signed: Ray Masterson MD at 19:24 EDT ,
== END | disposition home or self-care (01) ==
PROVIDERS: PCP Family Medicine; Visit Provider Obstetrics & Gynecology
DX: O02.81 Inappropriate change in quantitative human chorionic gonadotropin (hCG) in early pregnancy (principal)
CPT/HCPCS: 36415; 76817; 84702

== ENCOUNTER → 2021-10-28 | Outpatient (CLI) | payer MEDICAID, SELFPAY ==
[2021-10-28 11:05] LABS: hCG Titer Quant., Serum 140 mIU/mL (1-3)
== END | disposition home or self-care (01) ==
LOC: LAB 09:40
PROVIDERS: PCP Family Medicine; Visit Provider Obstetrics & Gynecology
DX: O03.9 Complete or unspecified spontaneous abortion without complication (principal)
CPT/HCPCS: 84702

== ENCOUNTER → 2021-10-31 | Outpatient (CLI) | payer MEDICAID, SELFPAY ==
[2021-10-31 09:35] LABS: hCG Titer Quant., Serum 258 mIU/mL (1-3)
== END | disposition home or self-care (01) ==
LOC: PAVLAB 08:49
PROVIDERS: PCP Family Medicine; Referring Provider Obstetrics & Gynecology; Visit Provider Obstetrics & Gynecology
DX: N96 Recurrent pregnancy loss (principal)
CPT/HCPCS: 36415; 84702

== ENCOUNTER 2021-11-02 14:34 | Emergency (ER) | payer MEDICAID, SELFPAY ==
[2021-11-02 14:35] VITALS: BP 113/67; PULSE 106; RESP 16; TEMP 37.2; O2SAT 98; BMI 44.4
[2021-11-02 15:13] LABS: Absolute Neutrophil Count 3.2 X10^3/uL (2.0-7.7); Basophil# 0.03 X10^3/uL; Basophil% 0.7 % (0-1); Eosinophil# 0.02 X10^3/uL; Eosinophils% 0.4 % (0-5); Hematocrit 43.6 % (37-47); Hemoglobin 14.3 g/dL (12.0-15.0); Lymphocyte % 15.3 % (19-41); Mean Corp Hgb Conc 32.8 g/dL (32-36); Mean Corpuscular Hgb 28.5 pg (27.0-32.0); Mean Corpuscular Volume 86.9 fL (81-99); Mean Platelet Vol. 12.3 fl (6.2-12.0); Monocyte% 13.1 % (0-10); NRBC Flagged by Analyzer 0 % (0-5); Neutrophil # 3.21 X10^3/uL (2.7-7.7); Neutrophil % 70.1 % (47-70); Platelet Count 185 K/mm3 (150-450); RBC Distribution Width CV 12.8 % (11.6-14.6); RBC Distribution Width SD 40.3 fl (35.1-43.9); Red Blood Count 5.02 M/mm3 (4.2-5.4); White Blood Count 4.6 K/mm3 (4.4-11.0)
[2021-11-02 15:23] LABS: AST(SGOT) 21 U/L (15-37); Alanine Aminotransfer ALT/SGPT 46 U/L (13-56); Albumin, Serum 3.6 g/dL (3.2-5.0); Alkaline Phosphatase 58 U/L (45-117); Anion Gap 8 (5-15); BUN 7 mg/dL (7-18); BUN/Creat Ratio 6.6 RATIO (10-20); Calcium,Total 8.9 mg/dL (8.5-10.1); Chloride 104 mmol/L (98-107); Creatinine, Serum 1.06 mg/dL (0.55-1.02); EST Glomerular Filtration Rate 63 mL/min (>60); Est Glom Filt Rate - Afr Amer 77 mL/min (>60); Estimated Creatinine Clearance 70.67 ml/min; Globulin 3.6 g/dL (2.2-4.2); Glucose 156 mg/dL (74-106); Potassium 3.7 mmol/L (3.5-5.1); Protein, Total 7.2 g/dL (6.4-8.2); Sodium Level 138 mmol/L (136-145)
--- NOTE | 2021-11-02 15:59 | EDS_ITS ---
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 Patient has had 2 wkal-jw-ohye miscarriages her last menstrual period was in June. She is currently being worked up for antiphospholipid syndrome. She does not have any abdominal pain however her quant stopped doubling. She denies any vaginal bleeding. She also started having COVID symptoms yesterday with a positive COVID test. Patient has body aches, myalgias and chills. She has a slight cough. Denies any significant nausea and vomiting. No other complaints at this time. Is limiting Tylenol for her symptoms. PFSH PFS Medical History HSV-1 infection Home Medications ibuprofen 600 mg tablet 600 mg PO Q6H PRN fever or pain #20 tabs 11/02/21 [Rx Last Taken Unknown] ondansetron 4 mg disintegrating tablet 4 mg PO Q6H PRN nausea and vomiting #14 tabs 11/02/21 [Rx Last Taken Unknown] Allergy/AdvReac Type Severity Reaction Status Date / Time doxycycline Allergy Intermediate Rash Verified 11/02/21 14:35 morphine Allergy Other Verified 11/02/21 14:35 Family History Father Barretts esophagus Skin cancer Diabetes Hypertension Grandfather Lung cancer Liver cancer Uncle Skin cancer Social History household members: children number of children: 1 current occupational status: employed 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 [employer] history of recent travel: No sexually active: No Smoking Status: Light Smoker (<10/day) alcohol intake: current alcohol intake frequency: holidays/special occasions only substance use type: does not use what type of physical activity do you participate in: none seatbelt use: always do you feel safe at home: Yes additional social history: single ROS ROS ED Constitutional Constitutional ED: Reports chills ENT ENT ED: Reports sore throat; Denies rhinorrhea Cardiovascular Cardiovascular: Denies chest pain or palpitations Respiratory/Chest Respiratory/Chest: Reports cough; Denies dyspnea Gastrointestinal Gastrointestinal: Denies abdominal pain, nausea or vomiting Genitourinary Genitourinary ED: Denies dysuria or hematuria Musculoskeletal Musculoskeletal: Reports myalgias; Denies arthralgias Integumentary Denies rash Neurologic Neurologic: Denies headache(s) or paresthesias Psychiatric Psychiatric: Denies anxiety Hematologic/Lymphatic Hematologic/Lymphatic: Denies easy bleeding or easy bruising EXAM Physical Exam Const Vital Signs: 11/02/21 14:35 Temperature 98.9 F Temperature Source Temporal Pulse Rate 106 H Respiratory Rate 16 Blood Pressure 113/67 Blood Pressure Mean 82 Pulse Ox 98 Oxygen Delivery Method Room Air Positive well nourished, well developed and obese General Appearance ED: well developed and NAD Nutritional Appearance: obese HEENT Reports moist mucous membranes Eyes PERRL and EOMs intact bilaterally Neck supple Chest Wall inspection of chest normal and palpation of chest normal Resp normal respiratory effort and clear to auscultation bilaterally Cardio regular rate, regular rhythm and no murmurs GI normal to inspection, nondistended, normoactive bowel sounds and soft to palpation Palpation: Negative for tender Back/Spine no CVA tenderness Extremity normal to inspection and full ROM Neuro oriented x3 Motor Exam: Negative for general weakness Psych mental status grossly normal Skin no rashes or lesions noted MDM MDM MDM Narrative Medical decision making narrative: Patient evaluated for possible early ectopic . She had a negative transvaginal ultrasound 1 week ago with no intrauterine gestational sac. Her hCG quant on 10/31/2021 was 258 and her quant today is 272. This is not consistent with a viable . Patient is administered methotrexate per the instruction of Dr. Paul. CBC and CMP also obtained per request of gynecology. Patient denies any bleeding disorder but does possibly have clotting disorder. She also has COVID symptoms. She is not having severe symptoms or signs of respiratory compromise or secondary pneumonia. She will be prescribed Motrin 600 mg as well as Zofran to help with the symptoms. 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 Counseled return precautions. Verbalizes agreement and understands this plan. Lab Data Labs: Laboratory Results - last 24 hr 11/02/21 11/02/21 15:00 15:00 WBC 4.6 RBC 5.02 Hgb 14.3 Hct 43.6 MCV 86.9 MCH 28.5 MCHC 32.8 RDW Std Deviation 40.3 RDW Coeff of Ester 12.8 Plt Count 185 MPV 12.3 H Immature Gran % (Auto) 0.400 Neut % (Auto) 70.1 H Lymph % (Auto) 15.3 L [place] % (Auto) 13.1 H Eos % (Auto) 0.4 Baso % (Auto) 0.7 Absolute Neuts (auto) 3.2 Absolute Lymphs (auto) 0.70 L Nucleated RBC % 0 Sodium 138 Potassium 3.7 Chloride 104 Carbon Dioxide 26.0 Anion Gap 8 BUN 7 Creatinine 1.06 H Estim Creat Clear Calc 70.67 Est GFR (MDRD) Af Amer 77 Est GFR (MDRD) Non-Af 63 BUN/Creatinine Ratio 6.6 L Glucose 156 H Calcium 8.9 Total Bilirubin 0.20 AST 21 ALT 46 Alkaline Phosphatase 58 Total Protein 7.2 Albumin 3.6 Globulin 3.6 Albumin/Globulin Ratio 1.0 Discharge Plan Triage Chief Complaint: ED Provider: Amirah Mcmahon Dx/Rx/DC Orders Clinical Impression: Ectopic , COVID-19 Instructions: Coronavirus Disease 2019 (COVID-19): Caring for Yourself or Others, ED Methotrexate for Ectopic ... Prescriptions: New ibuprofen 600 mg tablet 600 mg PO Q6H PRN (Reason: fever or pain) Qty: 20 0RF ondansetron 4 mg tablet,disintegrating 4 mg PO Q6H PRN (Reason: nausea and vomiting) Qty: 14 0RF Primary Care Provider: Miranda Reyes Referrals: Miranda Reyes MD [Primary Care Provider] - Roxana Mercado DO [Med Staff - Active Staff] - 3-5 Days Disposition Disposition: Home, Self Care
[2021-11-02] MEDS: Ibuprofen 600 MG Tablet PO (16:09)
[2021-11-02 16:17] VITALS: RESP 18
--- NOTE | 2021-11-02 16:17 | ED.RN ---
no reaction at injection sites of left and right leg.
== END 2021-11-02 16:18 | disposition home or self-care (01) ==
PROVIDERS: Emergency Provider Emergency Medicine; PCP Family Medicine; Visit Provider Emergency Medicine
DX: U07.1 COVID-19 (principal); Z68.41 Body mass index [BMI] 40.0-44.9, adult; O00.90 Unspecified ectopic pregnancy without intrauterine pregnancy; F17.200 Nicotine dependence, unspecified, uncomplicated; E66.9 Obesity, unspecified
CPT/HCPCS: 80053; 84702; 85025; 96372; 99283; J9250

== ENCOUNTER → 2021-11-02 | Outpatient (CLI) | payer MEDICAID, SELFPAY ==
[2021-11-02 13:00] LABS: hCG Titer Quant., Serum 272 mIU/mL (1-3)
== END | disposition home or self-care (01) ==
LOC: LAB 12:33 → LABSPEC 12:35
PROVIDERS: PCP Family Medicine; Visit Provider Obstetrics & Gynecology
DX: N96 Recurrent pregnancy loss (principal)
CPT/HCPCS: 84702

== ENCOUNTER → 2021-11-06 | Outpatient (CLI) | payer MEDICAID, SELFPAY ==
[2021-11-06 13:45] LABS: hCG Titer Quant., Serum 188 mIU/mL (1-3)
== END | disposition home or self-care (01) ==
PROVIDERS: Obstetrics & Gynecology; PCP Family Medicine; Visit Provider Obstetrics & Gynecology
DX: O00.90 Unspecified ectopic pregnancy without intrauterine pregnancy (principal)
CPT/HCPCS: 84702

== ENCOUNTER → 2021-11-07 | Outpatient (CLI) | payer MEDICAID, SELFPAY ==
--- NOTE | 2021-11-07 11:16 | US_ITS ---
STUDY: FIRST TRIMESTER OBSTETRICAL ULTRASOUND REASON FOR EXAM: Female, 31 years old viability -- MISCARRIAGE IN AUGUST -- ABN HCG LEVELS -- INCONCLUSIVE US 10/26/21 -- POSSIBLE ECTOPIC patient was given METHOTREXATE on 11/02/2021. LMP: Unknown. TECHNIQUE: Transabdominal and Transvaginal TECHNICAL QUALITY: Adequate. PRIOR ULTRASOUND: Comparison is made with prior study 10/26/2021. FINDINGS: There is no demonstrated intrauterine gestational sac. There is no demonstrated yolk sac. The placenta is non-visualized. There is no demonstrated embryo ( pole). The uterus measures 8.9 cm x 5.1 cm x 3.8 cm. The endometrium measures 8 mm. There is no demonstrated uterine fibroid. The cervix is closed. The right ovary measures 3 cm x 3 cm x 1.2 centimeters. There is a 2.9 cm x 1.8 cm x 1.6 cm hypoechoic solid nodule in the right adnexa. The left ovary measures 3.2 cm x 2.3 cm x 1.9 cm. There is no left ovarian cyst. There is no visualized left adnexal mass or complex lesion. There is no fluid in the cul de sac. IMPRESSION: No evidence of intrauterine gestational sac. 2.9 cm 1.8 cm x 1.6 cm hypoechoic solid nodule in the right adnexa. This may represent a possible ectopic . Serial beta hCG evaluation is suggested. Electronically Signed: Vinny Krause MD at 12:49 EDT , STUDY: SECOND AND THIRD TRIMESTER OBSTETRICAL ULTRASOUND - LIMITED REASON FOR EXAM: Female, 31 years old viability -- MISCARRIAGE IN AUGUST -- ABN HCG LEVELS -- INCONCLUSIVE US 10/26/21 -- POSSIBLE ECTOPIC LMP: PRIOR ULTRASOUND: None. TECHNIQUE: TECHNICAL QUALITY: Adequate. FINDINGS: There is a single intrauterine fetus. The fetus is in a cephalic presentation. There is demonstrated cardiac activity with a heart rate of bpm. There is a normal amniotic fluid volume. The largest amniotic fluid pocket measures cm. The amniotic fluid index (FLORENTINO) is cm. The placenta is There are Grade 0 placental changes. The cervix measures cm in length. BIOMETRY: BPD: : weeks, days HC: : weeks, days AC: : weeks, days FL: : weeks, days Age by LMP: weeks, days. NATALIA by LMP: . age by prior US: weeks, days. NATALIA by prior US: . age by current US: weeks, days. NATALIA by current US: . Estimated weight: grams, +/- grams, percentile. Gender: US/Transvaginal w/Preg US IMPRESSION: Electronically Signed: Vinny Krause MD at 12:49 EDT ,
--- NOTE | 2021-11-07 11:16 | US_ITS ---
STUDY: FIRST TRIMESTER OBSTETRICAL ULTRASOUND REASON FOR EXAM: Female, 31 years old viability -- MISCARRIAGE IN AUGUST -- ABN HCG LEVELS -- INCONCLUSIVE US 10/26/21 -- POSSIBLE ECTOPIC patient was given METHOTREXATE on 11/02/2021. LMP: Unknown. TECHNIQUE: Transabdominal and Transvaginal TECHNICAL QUALITY: Adequate. PRIOR ULTRASOUND: Comparison is made with prior study 10/26/2021. FINDINGS: There is no demonstrated intrauterine gestational sac. There is no demonstrated yolk sac. The placenta is non-visualized. There is no demonstrated embryo ( pole). The uterus measures 8.9 cm x 5.1 cm x 3.8 cm. The endometrium measures 8 mm. There is no demonstrated uterine fibroid. The cervix is closed. The right ovary measures 3 cm x 3 cm x 1.2 centimeters. There is a 2.9 cm x 1.8 cm x 1.6 cm hypoechoic solid nodule in the right adnexa. The left ovary measures 3.2 cm x 2.3 cm x 1.9 cm. There is no left ovarian cyst. There is no visualized left adnexal mass or complex lesion. There is no fluid in the cul de sac. IMPRESSION: No evidence of intrauterine gestational sac. 2.9 cm 1.8 cm x 1.6 cm hypoechoic solid nodule in the right adnexa. This may represent a possible ectopic . Serial beta hCG evaluation is suggested. Electronically Signed: Vinny Krause MD at 12:49 EDT , STUDY: SECOND AND THIRD TRIMESTER OBSTETRICAL ULTRASOUND - LIMITED REASON FOR EXAM: Female, 31 years old viability -- MISCARRIAGE IN AUGUST -- ABN HCG LEVELS -- INCONCLUSIVE US 10/26/21 -- POSSIBLE ECTOPIC LMP: PRIOR ULTRASOUND: None. TECHNIQUE: TECHNICAL QUALITY: Adequate. FINDINGS: There is a single intrauterine fetus. The fetus is in a cephalic presentation. There is demonstrated cardiac activity with a heart rate of bpm. There is a normal amniotic fluid volume. The largest amniotic fluid pocket measures cm. The amniotic fluid index (FLORENTINO) is cm. The placenta is There are Grade 0 placental changes. The cervix measures cm in length. BIOMETRY: BPD: : weeks, days HC: : weeks, days AC: : weeks, days FL: : weeks, days Age by LMP: weeks, days. NATALIA by LMP: . age by prior US: weeks, days. NATALIA by prior US: . age by current US: weeks, days. NATALIA by current US: . Estimated weight: grams, +/- grams, percentile. Gender: US/OB Limited (No Biometrics) IMPRESSION: Electronically Signed: Vinny Krause MD at 12:49 EDT ,
== END | disposition home or self-care (01) ==
LOC: US 11:14
PROVIDERS: PCP Family Medicine; Referring Provider Obstetrics & Gynecology; Visit Provider Obstetrics & Gynecology
DX: O36.80X0 Pregnancy with inconclusive fetal viability, not applicable or unspecified (principal); Z3A.00 Weeks of gestation of pregnancy not specified; Z87.59 Personal history of other complications of pregnancy, childbirth and the puerperium
CPT/HCPCS: 76815; 76817

== ENCOUNTER → 2021-11-08 | Outpatient (CLI) | payer MEDICAID, SELFPAY ==
[2021-11-08 14:44] LABS: hCG Titer Quant., Serum 153 mIU/mL (1-3)
== END | disposition home or self-care (01) ==
LOC: PAVLAB 13:44
PROVIDERS: PCP Family Medicine; Referring Provider Obstetrics & Gynecology; Visit Provider Obstetrics & Gynecology
DX: O00.90 Unspecified ectopic pregnancy without intrauterine pregnancy (principal)
CPT/HCPCS: 36415; 84702

== ENCOUNTER → 2021-11-15 | Outpatient (CLI) | payer MEDICAID, SELFPAY ==
[2021-11-15 10:21] LABS: hCG Titer Quant., Serum 35 mIU/mL (1-3)
== END | disposition home or self-care (01) ==
LOC: PAVLAB 09:43
PROVIDERS: PCP Family Medicine; Referring Provider Obstetrics & Gynecology; Visit Provider Obstetrics & Gynecology
DX: O00.90 Unspecified ectopic pregnancy without intrauterine pregnancy (principal)
CPT/HCPCS: 36415; 84702

== ENCOUNTER → 2021-11-22 | Outpatient (CLI) | payer MEDICAID, SELFPAY ==
[2021-11-22 10:26] LABS: hCG Titer Quant., Serum < 1 mIU/mL (1-3)
== END | disposition home or self-care (01) ==
LOC: PAVLAB 09:41
PROVIDERS: PCP Family Medicine; Referring Provider Obstetrics & Gynecology; Visit Provider Obstetrics & Gynecology
DX: O00.90 Unspecified ectopic pregnancy without intrauterine pregnancy (principal)
CPT/HCPCS: 36415; 84702

== ENCOUNTER → 2022-03-29 | Outpatient (CLI) | payer MEDICAID, SELFPAY ==
[2022-04-03 04:07] LABS: Dilute Prothrombin Time (dPT) 37.3 sec (0.0-47.6); Dilute Russell Viper Venom 38.5 sec (0.0-47.0); Thrombin Time 16.7 sec (0.0-23.0); dPT Confirm Ratio 0.93 Ratio (0.00-1.34)
[2022-04-05 21:25] LABS: Anti-Cardiolipin Ab, IgA, Qn < 9 APL U/mL (0-11); Anti-Cardiolipin Ab, IgG, Qn < 9 GPL U/mL (0-14); Anti-Cardiolipin Ab, IgM, Qn 26 MPL U/mL (0-12); Beta-2-Glycoprotein I IgA <9 (0-25); Beta-2-Glycoprotein I IgG <9 (0-20); Beta-2-Glycoprotein I IgM <9 (0-32); Interpretation Comment: (.)
== END | disposition home or self-care (01) ==
LOC: PAVLAB 10:27
PROVIDERS: PCP Family Medicine; Referring Provider Obstetrics & Gynecology; Visit Provider Obstetrics & Gynecology
DX: N96 Recurrent pregnancy loss (principal)
CPT/HCPCS: 36415; 86146; 86147

== ENCOUNTER 2022-04-02 12:54 | Emergency (ER) | payer MEDICAID, SELFPAY ==
[2022-04-02 12:55] VITALS: BP 155/79; PULSE 75; RESP 16; TEMP 36.6; O2SAT 98; BMI 46.0
--- NOTE | 2022-04-02 13:12 | NURSING ---
NO OLD EKGS
[2022-04-02 13:16] VITALS: BP 107/70; PULSE 80; RESP 16; O2SAT 97
--- NOTE | 2022-04-02 13:21 | EKG12_ITS ---
Test Reason : CP Blood Pressure : / mmHG Vent. Rate : 066 BPM Atrial Rate : 066 BPM P-R Int : 172 ms QRS Dur : 086 ms QT Int : 396 ms P-R-T Axes : 041 036 013 degrees QTc Int : 415 ms Normal sinus rhythm Normal ECG Confirmed by SEAMUS HERNANDEZ MD ([id number]), school photograph editor JACINTA BLACKBURN ([id number]) on 04/03/2022 2:03:19 PM Referred By: MICHELLE Confirmed By:SEAMUS HERNANDEZ MD
--- NOTE | 2022-04-02 13:21 | RAD_ITS ---
STUDY: X-RAY CHEST REASON FOR EXAM: Female, 31 years old. Chest pain TECHNIQUE: Single AP portable view of the chest. COMPARISON: None. FINDINGS: EKG electrodes are seen. The lungs are clear and expanded. There is no demonstrated pleural abnormality. Normal size heart. Normal mediastinum and greg. Normal visualized pulmonary arteries. Normal visualized aortic arch and descending thoracic aorta. Normal visualized thoracic spine. Normal visualized ribs, clavicles, and shoulders. There is no demonstrated abnormality of the visualized soft tissue structures of the upper abdomen. RAD/Chest 1 View (Portable) IMPRESSION: Normal x-ray examination of the chest. Electronically Signed: Vinny Krause MD at 14:33 EST ,
--- NOTE | 2022-04-02 13:22 | ED.VIS.CHEST ---
HPI History of Present Illness Chief Complaint: Chest Pain Informant: patient Onset/Context/Timing Onset: Today Narrative Narrative: Patient presents secondary to chest pain and tingling in her left arm. She states that within the last hour she had 2 episodes of chest pain which she describes as 5-minute episodes of a squeezing pressure in the midportion of her chest. They will subside spontaneously. She is also noted some tingling in her left arm that has been consistent. She denies any weakness in her arm. She has chronic neck pain that is unchanged from baseline. No recent falls or injuries. [facility] Medical History Antiphospholipid antibody positive HSV-1 infection Home Medications ibuprofen 600 mg tablet 600 mg PO Q6H PRN fever or pain #20 tabs 11/02/21 [Rx Last Taken Unknown] ondansetron 4 mg disintegrating tablet 4 mg PO Q6H PRN nausea and vomiting #14 tabs 11/02/21 [Rx Last Taken Unknown] Allergy/AdvReac Type Severity Reaction Status Date / Time doxycycline Allergy Intermediate Rash Verified 11/02/21 14:35 morphine Allergy Other Verified 11/02/21 14:35 Family History Father Barretts esophagus Skin cancer Diabetes Hypertension Grandfather Lung cancer Liver cancer Uncle Skin cancer Social History household members: children number of children: 1 current occupational status: employed 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[employer] history of recent travel: No sexually active: No Smoking Status: Light Smoker (<10/day) alcohol intake: current alcohol intake frequency: holidays/special occasions only substance use type: does not use what type of physical activity do you participate in: none seatbelt use: always do you feel safe at home: Yes additional social history: single ROS ROS ED Constitutional Constitutional ED: Denies chills or fever(s) Eyes Eyes: Denies change in vision or discharge from eye(s) ENT ENT ED: Denies discharge from eye(s), rhinorrhea or sore throat Cardiovascular Cardiovascular: Reports chest pain; Denies palpitations Respiratory/Chest Respiratory/Chest: Denies cough or dyspnea Gastrointestinal Gastrointestinal: Denies abdominal pain, diarrhea, nausea or vomiting Genitourinary Genitourinary ED: Denies difficulty urinating or dysuria Musculoskeletal Musculoskeletal: Denies back pain or extremity pain Integumentary Denies Abrasions or rash Neurologic Neurologic: Reports paresthesias; Denies headache(s) or weakness Endocrine Endocrinology: Denies polydipsia or polyuria Allergic/Immunologic Allergic/Immunologic ED: Denies lip swelling or urticaria EXAM Physical Exam Const Vital Signs: 04/02/22 12:55 04/02/22 13:16 04/02/22 13:51 Temperature 98 F Temperature Source Temporal Pulse Rate 75 80 Respiratory Rate 16 16 Blood Pressure 155/79 H 107/70 Blood Pressure Mean 104 82 Pulse Ox 98 97 97 Oxygen Delivery Method Room Air Room Air Room Air 04/02/22 14:08 04/02/22 15:05 Temperature Temperature Source Pulse Rate 72 65 Respiratory Rate 19 H 18 Blood Pressure 116/71 120/52 L Blood Pressure Mean 86 74 Pulse Ox 96 99 Oxygen Delivery Method Room Air Room Air Positive well nourished and well developed General Appearance ED: well developed HEENT Reports normocephalic and head/scalp atraumatic Eyes PERRL and EOMs intact bilaterally Neck supple Chest Wall inspection of chest normal and palpation of chest normal Resp normal respiratory effort and clear to auscultation bilaterally Cardio regular rate and regular rhythm GI normal to inspection, nondistended, normoactive bowel sounds Palpation: soft Back/Spine no CVA tenderness Back/Spine Narrative: Reproducible tenderness in the thoracic paraspinals left upper. Extremity normal to inspection Extremity Narrative: Full range of motion left upper extremity. Strong distal pulses. No skin discoloration. Patient reports slight decrease sensation to light touch with paresthesias. Neuro oriented x3 Sensorium / Orientation: alert Motor Exam: strength 5/5 throughout Psych mental status grossly normal Skin no rashes or lesions noted Heart Score History: Slightly/Non-Suspicious ECG: Normal Age: </= 45 years Risk Factors: No Risk Factors Troponin: </= Normal Limit Score: 0 MDM MDM MDM Narrative Medical decision making narrative: Patient placed on bus monitor. EKG obtained to evaluate for cardiac ischemia. Chest x-ray obtained to evaluate for acute lung pathology. Lab work obtained to evaluate for anemia, electrolyte abnormality, cardiac ischemia, risk of PE. Patient was given aspirin. Lab Data Attestation: I reviewed the patient's lab results. Labs: Laboratory Results - last 24 hr 04/02/22 04/02/22 04/02/22 13:40 13:40 13:40 WBC 8.2 RBC 5.07 Hgb 14.3 Hct 43.8 MCV 86.4 MCH 28.2 MCHC 32.6 RDW Std Deviation 38.9 RDW Coeff of Ester 12.4 Plt Count 238 MPV 11.6 Immature Gran % (Auto) 0.400 Neut % (Auto) 60.4 Lymph % (Auto) 30.6 [place] % (Auto) 6.7 Eos % (Auto) 1.3 Baso % (Auto) 0.6 Absolute Neuts (auto) 4.9 Absolute Lymphs (auto) 2.49 Nucleated RBC % 0 D-Dimer Quant (PE/DVT) < 0.27 L Sodium 138 Potassium 3.8 Chloride 100 Carbon Dioxide 29.0 Anion Gap 9 BUN 15 Creatinine 0.96 Estim Creat Clear Calc 78.03 Est GFR (MDRD) Af Amer 86 Est GFR (MDRD) Non-Af 71 BUN/Creatinine Ratio 15.7 Glucose 121 H Calcium 9.6 Troponin I High Sens 5 Serum , Qual 04/02/22 13:40 WBC RBC Hgb Hct MCV MCH MCHC RDW Std Deviation RDW Coeff of Ester Plt Count MPV Immature Gran % (Auto) Neut % (Auto) Lymph % (Auto) [place] % (Auto) Eos % (Auto) Baso % (Auto) Absolute Neuts (auto) Absolute Lymphs (auto) Nucleated RBC % D-Dimer Quant (PE/DVT) Sodium Potassium Chloride Carbon Dioxide Anion Gap BUN Creatinine Estim Creat Clear Calc Est GFR (MDRD) Af Amer Est GFR (MDRD) Non-Af BUN/Creatinine Ratio Glucose Calcium Troponin I High Sens Serum , Qual NEGATIVE Radiography Chest X-Ray - ED: 1 View, Read by ED Physician, Normal, Heart, Lungs and Mediastinum Diagnostic Testing: Clinical Impression(s) from Imaging Studies Chest X-Ray 04/02/22 13:21 IMPRESSION: Normal x-ray examination of the chest. Electronically Signed: Vinny Krause MD at 14:33 EST , EKG Initial EKG: Attestation: I personally reviewed and interpreted this EKG as follows: Interpretation: Sinus Rhythm (Sinus at 66 with no acute ischemia.) Treatment and Re-Evaluation Narrative: EKG reveals no acute ischemia. Portable chest x-ray per my interpretation reveals no acute abnormalities. Radiology interpretation is reviewed and agrees. CBC and chemistry studies are largely unremarkable. Troponin is normal at 5. D-dimer is less than 0.27. test is negative. On repeat evaluation patient resting comfortably. She is given a Lidoderm patch on the left upper thoracic paraspinal muscles and given a dose of Toradol. 2-hour troponin will be obtained as the patient presented with less than 1 hour of symptoms. If this is negative patient will be discharged to home to continue supportive care. This will be signed out oncoming physician. Discharge Plan Triage Chief Complaint: Chest Pain ED Provider: Roxana Chan Dx/Rx/DC Orders Clinical Impression: Chest pain, Muscle spasm, Arm paresthesia, left Instructions: ED Chest Pain, Noncardiac, ED Muscle Spasm, ED Paraesthesias Prescriptions: No Action ibuprofen 600 mg tablet 600 mg PO Q6H PRN (Reason: fever or pain) Qty: 20 0RF ondansetron 4 mg tablet,disintegrating 4 mg PO Q6H PRN (Reason: nausea and vomiting) Qty: 14 0RF Primary Care Provider: Miranda Reyes Referrals: Miranda Reyes MD [Primary Care Provider] - 1 Week if not improving Disposition Disposition: Home, Self Care
[2022-04-02 13:51] VITALS: O2SAT 97
[2022-04-02 13:53] LABS: Absolute Lymphocyte Count 2.49 X10^3/uL (0.83-4.51); Absolute Neutrophil Count 4.9 X10^3/uL (2.0-7.7); Basophil# 0.05 X10^3/uL; Basophil% 0.6 % (0-1); Eosinophil# 0.11 X10^3/uL; Eosinophils% 1.3 % (0-5); Hematocrit 43.8 % (37-47); Hemoglobin 14.3 g/dL (12.0-15.0); Lymphocyte # 2.49 X10^3/ul (0.83-4.51); Lymphocyte % 30.6 % (19-41); Mean Corp Hgb Conc 32.6 g/dL (32-36); Mean Corpuscular Hgb 28.2 pg (27.0-32.0); Mean Corpuscular Volume 86.4 fL (81-99); Mean Platelet Vol. 11.6 fl (6.2-12.0); Monocyte# 0.55 X10^3/uL; Monocyte% 6.7 % (0-10); NRBC Flagged by Analyzer 0 % (0-5); Neutrophil # 4.92 X10^3/uL (2.7-7.7); Neutrophil % 60.4 % (47-70); Platelet Count 238 K/mm3 (150-450); RBC Distribution Width CV 12.4 % (11.6-14.6); RBC Distribution Width SD 38.9 fl (35.1-43.9); Red Blood Count 5.07 M/mm3 (4.2-5.4); White Blood Count 8.2 K/mm3 (4.4-11.0)
[2022-04-02 13:57] LABS: Internal QC Validated? YES +Cl - CLEAR BKGD; Pregnancy, Serum, hCG Quali. NEGATIVE Negative
[2022-04-02 14:04] LABS: D-Dimer Quantitative (DVT/PE) < 0.27 FEU/ug/m (0.27-0.49)
[2022-04-02 14:08] VITALS: BP 116/71; PULSE 72; RESP 19; O2SAT 96
[2022-04-02 14:09] LABS: Anion Gap 9 (5-15); BUN 15 mg/dL (7-18); BUN/Creat Ratio 15.7 RATIO (10-20); Calcium,Total 9.6 mg/dL (8.5-10.1); Chloride 100 mmol/L (98-107); Creatinine, Serum 0.96 mg/dL (0.55-1.02); EST Glomerular Filtration Rate 71 mL/min (>60); Est Glom Filt Rate - Afr Amer 86 mL/min (>60); Estimated Creatinine Clearance 78.03 ml/min; Glucose 121 mg/dL (74-106); Potassium 3.8 mmol/L (3.5-5.1); Sodium Level 138 mmol/L (136-145); Troponin-I HS (w/2H Reflex) 5 pg/mL (3.0-54.0)
[2022-04-02] MEDS: Aspirin 81 MG TAB.CHEW 324 MG PO (14:17)
[2022-04-02] MEDS: 0.9% Normal Saline 1,000 ML 150 ML IV (14:17)
[2022-04-02] MEDS: Lidocaine 5% Patch 1 PATCH TOPICAL (14:45)
[2022-04-02] MEDS: Ketorolac 30 MG/ML Syringe IV (14:46)
[2022-04-02 15:05] VITALS: BP 120/52; PULSE 65; RESP 18; O2SAT 99
[2022-04-02 15:44] LABS: Reflex Troponin-HS? (from REC) Y
[2022-04-02 16:05] VITALS: PULSE 70; RESP 20; O2SAT 100
[2022-04-02 16:27] LABS: Troponin-I HS 3 pg/mL (3.0-54.0)
== END 2022-04-02 16:57 | disposition home or self-care (01) ==
PROVIDERS: Emergency Provider Emergency Medicine; PCP Family Medicine; Visit Provider Emergency Medicine
DX: R07.9 Chest pain, unspecified (principal); M62.838 Other muscle spasm; R20.2 Paresthesia of skin; M54.2 Cervicalgia; G89.29 Other chronic pain; F17.200 Nicotine dependence, unspecified, uncomplicated
CPT/HCPCS: 71045; 80048; 84484; 84703; 85025; 85379; 93005; 96374; 99283; J7030; A4216

== ENCOUNTER → 2023-03-04 | Outpatient (CLI) | payer OTHER, SELFPAY ==
--- OUTSIDE RECORDS SUMMARY | 2023-03-04 12:48 | XMS RPT_ITS | CCD ---
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 no.124/iron/folic ( VITAMIN ORAL) Take 1 tablet by mouth once daily. aspirin, enteric coated (ASPIRIN, ENTERIC COATED) 81 mg EC tablet Take 81 mg by mouth once daily. cetirizine HCl (ZYRTEC) 10 mg chewable tablet Take 10 mg by mouth once daily. As needed No current facility-administered medications for this visit. Allergies As of Date: 02/01 (more content not included)... [facility] 02-27-2023 Note HNO ID: [id number] Author: Cathie Blanca LPN Service: ? Author Type: LICENSED NURSE Type: Progress Notes Filed: 02/27/2023 12:55 PM Note Text: OB point of care ultrasound was performed. See imaging tab for details. Cathie Blanca LPN [facility] 02-10-2023 Note HNO ID: [id number] Author: Zohreh Galvez APRN.RESEARCH COMPUTING SPECIALIST Service: ? Author Type: Nurse Practitioner Type: Progress Notes Filed: 02/10/2023 11:49 AM Note Text: Telemedicine Evaluation for COVID-19 Infection MyChart Zoom Video Visit was used for evaluation of this patient. I have communicated my name and active licensure. The patient's identity and physical location were verified at the time of this visit. Either the patient or their legal environmental marketing representative has been informed of the risks and benefits of -- and alternatives to -- treatment through a remote evaluation and consents to proceed with the evaluation remotely. MORIS Mandel is a 32 year old female who presents with 3 days of symptoms that are stable. Symptoms include: Fever (?100.4F): Yes or Chills: Yes Cough: Yes Shortness of breath: No or Difficulty breathing: No Fatigue: Yes Muscle aches: No Headache: No New loss of smell or taste: No Sore throat: Yes Nasal congestion: Yes or Rhinorrhea: No Nausea: No or Vomiting: No Diarrhea: No OTC meds/remedies that patient has tried: acetaminophen and NSAIDs. High risk category assessment Morbid Obesity (BMI>40) Exposures: Sick contacts? Yes Family or close contacts with confirmed/probable COVID-19 in last 14 days? Yes Problem List Noted Noted By Resolved Resolved By Obesity, Class III, BMI >= 40 12/23/2022 Fariba Torres MD No Pain in thoracic spine 07/09/2013 Ayanna Castillo (Pt) No Pain in joint, lower leg 07/09/2013 Ayanna Castillo (Pt) No Lumbago 07/09/2013 Ayanna Castillo (Pt) No Back pain Jhonathan Emery MD No Overview Signed 08/10/2013 9:25 AM by Fabian Hurley (Pa-C) Related to work injury 2 years, [facility] rehab related to lifting. Workman Comp: POR unsure. [facility]. Received treatment with PT x 1 month, light duty over 2-3 months. Claim is still open. LAst few Depressive disorder, not elsewhere classified 2007 Ed Ludwig MD No Obesity, unspecified 06/25/2007 Ed Ludwig MD No Overview Addendum 06/25/2007 12:00 AM by Ed Ludwig (Retired) Age 10 Tobacco use disorder 06/25/2007 Ed Ludwig MD No Overview Addendum 06/25/2007 12:00 AM by Ed Ludwig (Retired) Before age 8, a little, up to 1 PPD by age 15 PAST MEDICAL HISTORY Diagnosis Date Adjustment reaction, depressive, brief Antiphospholipid antibody syndrome (HCC) Back pain Obesity Prediabetes 12/31/2022 PAST SURGICAL HISTORY Procedure Laterality Date PAST SURGICAL HISTORY OF WISDOM TEETH OBJECTIVE VIDEO EXAM 99'F-102'F GENERAL: Ill-appearing, but non-toxic HEENT: no conjunctival injection, pupils equal, moist mucous membranes, pharyngeal erythema noted, sinuses non-tender to self-palpation, no cervical adenopathy by self-palpation, and no exudates seen; uvula midline PULMONARY: breathing comfortably on room air , no coughing noted, and no wheezing noted ASSESSMENT/PLAN (U07.1) COVID-19 virus infection (primary encounter diagnosis) Pt. Is febrile, appeared stable and in NAD Appears to be moderate covid-19 illness She has been vaccinated against covid-19 Risk factors for progression to severe illness includes BMI >40 Covid-19 pt. Information and isolation guidelines provided. Outpatient treatment options discussed Risks/benefits of treatment discussed Pt. Would like to proceed with paxlovid and symptomatic management Follow up with PCP for persistent, worsening or new symptoms - Discussed symptom monitoring and supportive care - Red flag symptoms requiring follow up discussed Nirmatrelvir/Ritonavir (Paxlovid) Considerations Paxlovid is FDA-approved for treatment of mild to moderate COVID-19 in adults who are at high risk for progression to severe COVID-19. Consider use of Paxlovid in the following examples of high risk patients (list is not all inclusive): Age over 65 years Cardiovascular and cerebrovascular disease Chronic disease state (kidney, liver, lung) Diabetes (type 1 or type 2) Immunocompromised state (cancer, solid organ or blood stem cell transplant, HIV) Obesity Paxlovid warnings include serious drug interactions (co-administration with drugs highly dependent on CYP3A for clearance), hypersensitivity reactions, hepatotoxicity, and risk of HIV-1 resistance development. Zohreh Galvez APRN.RESEARCH COMPUTING SPECIALIST February 10, 2023 11:46 AM This patient encounter involved the screening or treatment of novel coronavirus infection (COVID-19). [facility] 02-10-2023 History of Presen t illness Narrative Telemedicine Evaluation for COVID-19 Infection MyChart Zoom Video Visit was used for evaluation of this patient. I have communicated my name and active licensure. The patient's identity and physical location were verified at the time of this visit. Either the patient or their legal environmental marketing representative has been informed of the risks and benefits of -- and alternatives to -- treatment through a remote evaluation and consents to proceed with the evaluation remotely. MORIS Mandel is a 32 year old female who presents with 3 days of symptoms that are stable. Symptoms include: Fever (?100.4F): Yes or Chills: Yes Cough: Yes Shortness of breath: No or Difficulty breathing: No Fatigue: Yes Muscle aches: No Headache: No New loss of smell or taste: No Sore throat: Yes Nasal congestion: Yes or Rhinorrhea: No Nausea: No or Vomiting: No Diarrhea: No OTC meds/remedies that patient has tried: acetaminophen and NSAIDs. High risk category assessment Morbid Obesity (BMI>40) Exposures: Sick contacts? Yes Family or close contacts with confirmed/probable COVID-19 in last 14 days? Yes Problem List Noted Noted By Resolved Resolved By Obesity, Class III, BMI >= 40 12/23/2022 Fariba Torres MD No Pain in thoracic spine 07/09/2013 Ayanna Castillo (Pt) No Pain in joint, lower leg 07/09/2013 Ayanna Castillo (Pt) No Lumbago 07/09/2013 Ayanna Castillo (Pt) No Back pain Jhonathan Emery MD No Overview Signed 08/10/2013 9:25 AM by Fabian Hurley (JulioC) Related to work injury 2 years, [facility] re[facility] related to lifting. Workman Comp: POR unsure. [facility]. Received treatment with PT x 1 month, light duty over 2-3 months. Claim is still open. LAst few Depressive disorder, not elsewhere classified 2007 Ed Ludwig MD No Obesity, unspecified 06/25/2007 Ed Ludwig MD No Overview Addendum 06/25/2007 12:00 AM by Ed Ludwig (Retired) Age 10 Tobacco use disorder 06/25/2007 Ed Ludwig MD No Overview Addendum 06/25/2007 12:00 AM by Ed Ludwig (Retired) Before age 8, a little, up to 1 PPD by age 15 PAST MEDICAL HISTORY Diagnosis Date Adjustment reaction, depressive, brief Antiphospholipid antibody syndrome (HCC) Back pain Obesity Prediabetes 12/31/2022 PAST SURGICAL HISTORY Procedure Laterality Date PAST SURGICAL HISTORY OF WISDOM TEETH OBJECTIVE VIDEO EXAM 99'F-102'F GENERAL: Ill-appearing, but non-toxic HEENT: no conjunctival injection, pupils equal, moist mucous membranes, pharyngeal erythema noted, sinuses non-tender to self-palpation, no cervical adenopathy by self-palpation, and no exudates seen; uvula midline PULMONARY: breathing comfortably on room air , no coughing noted, and no wheezing noted ASSESSMENT/PLAN (U07.1) COVID-19 virus infection (primary encounter diagnosis) Pt. Is febrile, appeared stable and in NAD Appears to be moderate covid-19 illness She has been vaccinated against covid-19 Risk factors for progression to severe illness includes BMI >40 Covid-19 pt. Information and isolation guidelines provided. Outpatient treatment options discussed Risks/benefits of treatment discussed Pt. Would like to proceed with paxlovid and symptomatic management Follow up with PCP for persistent, worsening or new symptoms - Discussed symptom monitoring and supportive care - Red flag symptoms requiring follow up discussed Nirmatrelvir/Ritonavir (Paxlovid) Considerations Paxlovid is FDA-approved for treatment of mild to moderate COVID-19 in adults who are at high risk for progression to severe COVID-19. Consider use of Paxlovid in the following examples of high risk patients (list is not all inclusive): Age over 65 years Cardiovascular and cerebrovascular disease Chronic disease state (kidney, liver, lung) Diabetes (type 1 or type 2) Immunocompromised state (cancer, solid organ or blood stem cell transplant, HIV) Obesity Paxlovid warnings include serious drug interactions (co-administration with drugs highly dependent on CYP3A for clearance), hypersensitivity reactions, hepatotoxicity, and risk of HIV-1 resistance development. Zohreh Galvez APRN.CNP February 10, 2023 11:46 AM This patient encounter involved the screening or treatment of novel coronavirus infection (COVID-19). documented in this encounter [facility] 02-10-2023 Instructions Zohreh Galvez APRN.CNP - 02/10/2023 11:43 AM EST FACT SHEET FOR PATIENTS, PARENTS, AND CAREGIVERS EMERGENCY USE AUTHORIZATION (EUA) OF PAXLOVID FOR CORONAVIRUS DISEASE 2019 (COVID-19) You are being given this Fact Sheet because your healthcare provider believes it is necessary to provide you with PAXLOVID for the treatment of lfhz-wl-pzbzefde coronavirus disease (COVID-19) caused by the SARS-CoV-2 virus. This Fact Sheet contains information to help you understand the risks and benefits of taking the PAXLOVID you have received or may receive. The U.S. Food and Drug Administration (FDA) has issued an Emergency Use Authorization (EUA) to make PAXLOVID available during the COVID-19 pandemic (for more details about an EUA please see What is an Emergency Use Authorization? at the end of this document). PAXLOVID is not an FDA-approved medicine in the [place]. Read this Fact Sheet for information about PAXLOVID. Talk to your healthcare provider about your options or if you have any questions. It is your choice to take PAXLOVID. What is COVID-19? COVID-19 is caused by a virus called a coronavirus. You can get COVID-19 through close contact with another person who has the virus. COVID-19 illnesses have ranged from very ijyj-ot-rqkqds, including illness resulting in . While information so far suggests that most COVID-19 illness is mild, serious illness can happen and may cause some of your other medical conditions to become worse. Older people and people of all ages with severe, long lasting (chronic) medical conditions like heart disease, lung disease, and diabetes, for example seem to be at higher risk of being hospitalized for COVID-19. What is PAXLOVID? PAXLOVID is an investigational medicine used to treat ndfn-hy-xjtczfur COVID-19 in adults and children [12 years of age and older weighing at least 88 pounds (40 kg)] with positive results of direct SARS-CoV-2 viral testing, and who are at high risk for progression to severe COVID-19, including hospitalization or . PAXLOVID is investigational because it is still being studied. There is limited information about the safety and effectiveness of using PAXLOVID to treat people with trgt-lv-fdrjwiof COVID-19. The FDA has authorized the emergency use of PAXLOVID for the treatment of mild-tomoderate COVID-19 in adults and children [12 years of age and older weighing at least 88 pounds (40 kg)] with a positive test for the virus that causes COVID-19, and who are at high risk for progression to severe COVID-19, including hospitalization or , under an EUA. What should I tell my healthcare provider before I take PAXLOVID? Tell your healthcare provider if you: Have any allergies Have liver or kidney disease Are or plan to become Are a child Have any serious illnesses Tell your healthcare provider about all the medicines you take, including prescription and iiap-ows-inzkkbn medicines, vitamins, and herbal supplements. Some medicines may interact with PAXLOVID and may cause serious side effects. Keep a list of your medicines to show your healthcare provider and pharmacist when you get a new medicine. You can ask your healthcare provider or pharmacist for a list of medicines that interact with PAXLOVID. Do not start taking a new medicine without telling your healthcare provider. Your healthcare provider can tell you if it is safe to take PAXLOVID with other medicines. Tell your healthcare provider if you are taking combined hormonal contraceptive. PAXLOVID may affect how your control pills work. Females who are able to become should use another effective alternative form of contraception or an additional barrier method of contraception. Talk to your healthcare provider if you have any questions about contraceptive methods that might be right for you. How do I take PAXLOVID? PAXLOVID consists of 2 medicines: nirmatrelvir and ritonavir Take 2 pink tablets of nirmatrelvir with 1 white tablet of ritonavir by mouth 2 times each day (in the morning and in the evening) for 5 days. For each dose, take all 3 tablets at the same time. If you have kidney disease, talk to your healthcare provider. You may need a different dose. Swallow the tablets whole. Do not chew, break, or crush the tablets. Take PAXLOVID with or without food. Do not stop taking PAXLOVID without talking to your healthcare provider, even if you feel better. If you miss a dose of PAXLOVID within 8 hours of the time it is usually taken, take it as soon as you remember. If you miss a dose by more than 8 hours, skip the missed dose and take the next dose at your regular time. Do not take 2 doses of PAXLOVID at the same time. If you take too much PAXLOVID, call your healthcare provider or go to the nearest hospital emergency room right away. If you are taking a ritonavir- or cobicistat-containing medicine to treat hepatitis C or Human Immunodeficiency Virus (HIV), you should continue to take your medicine as prescribed by your healthcare provider. Talk to your healthcare provider if you do not feel better or if you feel worse after 5 days. Who should generally not take PAXLOVID? Do not take PAXLOVID if: You are allergic to nirmatrelvir, ritonavir, or any of the ingredients in PAXLOVID. You are taking any of the following medicines: Alfuzosin Pethidine, piroxicam, propoxyphene Ranolazine Amiodarone, dronedarone, flecainide, propafenone, quinidine Colchicine Lurasidone, pimozide, clozapine Dihydroergotamine, ergotamine, methylergonovine Lovastatin, simvastatin Sildenafil (Revatio ) for pulmonary arterial hypertension (PAH) Triazolam, oral midazolam Apalutamide Carbamazepine, phenobarbital, phenytoin Rifampin Nebo s Wort (hypericum perforatum) Taking PAXLOVID with these medicines may cause serious or life-threatening side effects or affect how PAXLOVID works. These are not the only medicines that may cause serious side effects if taken with PAXLOVID. PAXLOVID may increase or decrease the levels of multiple other medicines. It is very important to tell your healthcare provider about all of the medicines you are taking because additional laboratory tests or changes in the dose of your other medicines may be necessary while you are taking PAXLOVID. Your healthcare provider may also tell you about specific symptoms to watch out for that may indicate that you need to stop or decrease the dose of some of your other medicines. What are the important possible side effects of PAXLOVID? Possible side effects of PAXLOVID are: Liver Problems. Tell your healthcare provider right away if you have any of these signs and symptoms of liver problems: loss of appetite, yellowing of your skin and the whites of eyes (jaundice), dark-colored urine, pale colored stools and itchy skin, stomach area (abdominal) pain. Resistance to HIV Medicines. If you have untreated HIV infection, PAXLOVID may lead to some HIV medicines not working as well in the future. Other possible side effects include: altered sense of taste diarrhea high blood pressure muscle aches These are not all the possible side effects of PAXLOVID. Not many people have taken PAXLOVID. Serious and unexpected side effects may happen. PAXLOVID is still being studied, so it is possible that all of the risks are not known at this time. What other treatment choices are there? Like PAXLOVID, FDA may allow for the emergency use of other medicines to treat people with COVID-19. Go to https://www.fda.gov/emergency-pr eparedness-maribelle/mcm-legal -oiiussyblk-quk-vsagxr-framework /mkceaddfo-lhc-biveitnmfenqn for information on the emergency use of other medicines that are authorized by FDA to treat people with COVID-19. Your healthcare provider may talk with you about clinical trials for which you may be eligible. It is your choice to be treated or not to be treated with PAXLOVID. Should you decide not to receive it or for your child not to receive it, it will not change your standard medical care. What if I am or ? There is monologist treating women or mothers with PAXLOVID. For a mother and unborn baby, the benefit of taking PAXLOVID may be greater than the risk from the treatment. If you are , discuss your options and specific situation with your healthcare provider. It is recommended that you use effective barrier contraception or do not have sexual activity while taking PAXLOVID. If you are , discuss your options and specific situation with your healthcare provider. How do I report side effects with PAXLOVID? Contact your healthcare provider if you have any side effects that bother you or do not go away. Report side effects to [employer] at www.[employer].com.gov/[employer] or call 7-988-LOC-1088 or you can report side effects to [employer] at the contact information provided below. Website Fax number Telephone number [employer] How should I store PAXLOVID? Store PAXLOVID tablets at room temperature, between 68F to 77F (20C to 25C). How can I learn more about COVID-19? Ask your healthcare provider. Visit https://www.cdc.gov/COVID19. Contact your local or state public health department. What is an Emergency Use Authorization (EUA)? The [place] FDA has made PAXLOVID available under an emergency access mechanism called an Emergency Use Authorization (EUA). The EUA is supported by a [place] of Health and Human Service (HHS) declaration that circumstances exist to justify the emergency use of drugs and biological products during the COVID-19 pandemic. PAXLOVID for the treatment of wtrr-ok-vnwgoakj COVID-19 in adults and children [12 years of age and older weighing at least 88 pounds (40 kg)] with positive results of direct SARS-CoV-2 viral testing, and who are at high risk for progression to severe COVID-19, including hospitalization or , has not undergone the same type of review as an FDA-approved product. In issuing an EUA under the COVID-19 public health emergency, the FDA has determined, among other things, that based on the total amount of scientific evidence available including data from adequate and well-controlled clinical trials, if available, it is reasonable to believe that the product may be effective for diagnosing, treating, or preventing COVID-19, or a serious or life-threatening disease or condition caused by COVID-19; that the known and potential benefits of the product, when used to diagnose, treat, or prevent such disease or condition, outweigh the known and potential risks of such product; and that there are no adequate, approved, and available alternatives. All of these criteria must be met to allow for the product to be used in the treatment of patients during the COVID-19 pandemic. The EUA for PAXLOVID is in effect for the duration of the COVID-19 declaration justifying emergency use of this product, unless terminated or revoked (after which the products may no longer be used under the EUA). Additional Information For general questions, visit the website or call the telephone number provided below. Website Telephone number [employer] (6-455-U26-GMAJ) You can also go to www.[employer] or call for more information. [id number] Revised: 02/21/2021 Beginning Home Isolation Isolation is used to separate people infected with SARS-CoV-2, the virus that causes COVID-19, from people who are not infected. People who are in isolation should stay home until it s safe for them to be around others. In the home, anyone sick or infected should separate themselves from others by staying in a specific sick room or area and using a separate bathroom (if available). Isolation or Quarantine: What's the difference? Quarantine keeps someone who might have been exposed to the virus away from others. Isolation keeps someone who is infected with the virus away from others, even in their home. Who needs to isolate People who have COVID-19 People who have symptoms of COVID-19 and are able to recover at home People who have no symptoms (are asymptomatic) but have tested positive for infection with SARS-CoV-2 Steps to take Stay home except to get medical care Monitor your symptoms. Stay in a separate room from other household members, if possible Use a separate bathroom, if possible Avoid contact with other members of the household and pets Don t share personal household items, like cups, towels, and utensils Wear a mask when around other people, if you are able to When to seek emergency medical attention Look for emergency warning signs* for COVID-19. If someone is showing any of these signs, seek emergency medical care immediately: Trouble breathing Persistent pain or pressure in the chest New confusion Inability to wake or stay awake Bluish lips or face *This list is not all possible symptoms. Please call your medical provider for any other symptoms that are severe or concerning to you. Call 911 or call ahead to your local emergency facility: Notify the adjusto writer operator that you are seeking care for someone who has or may have COVID-19. Ending Home Isolation - When you can be around others after you had or likely had COVID-19 When you can be around others after you had or likely had COVID-19 If You Test Positive for COVID-19 (Isolation) Everyone, regardless of vaccination status: Stay home for 5 days. Note: Day 0 is your first day of symptoms or the date of collection of a positive viral test if no symptoms. Day 1 is the first full day after symptoms developed or test specimen was collected. If you have no symptoms or your symptoms are resolving after 5 days, you can leave your house. Continue to wear a mask around others for 5 additional days. If you have a fever, continue to stay home until your fever resolves, even if it is longer than 5 days. If You Were Exposed to Someone with COVID-19 (Quarantine) If you: 1. Have been boosted OR 2. Completed the primary series of Pfizer or Moderna vaccine within the last 6 months OR 3. Completed the primary series of J&J vaccine within the last 2 months THEN: 1. Wear a mask around others for 10 days. 2. Test on day 5, if possible. If you develop symptoms get a test and stay home. If You Were Exposed to Someone with COVID-19 (Quarantine) If you: 1. Completed the primary series of Pfizer or Moderna vaccine over 6 months ago and are not boosted OR 2. Completed the primary series of J&J over 2 months ago and are not boosted OR 3. Are unvaccinated THEN: 1. Stay home for 5 days. After that continue to wear a mask around others for 5 additional days. 2. If you can't quarantine you must wear a mask for 10 days. 3. Test on day 5 if possible. If you develop symptoms get a test and stay home. I had COVID-19 or I tested positive for COVID-19 and I have a weakened immune system If you have a weakened immune system (immunocompromised) due to a health condition or medication, you might need to stay home and isolate longer than 10 days. Talk to your healthcare provider for more information. Your doctor may work with an infectious disease expert at your local health department to determine when you can be around others. How to Manage Common Symptoms Associated with COVID for Adults Fever- Fever is a temperature over 100.4 F and can occur when the body is fighting an infection. To help treat a fever: Drink plenty of fluids and stay well hydrated. Eat small amounts of easy to digest food. Rest. Your body needs rest to recover, but getting up and moving around the house frequently is a good idea. You should try to continue doing your normal daily activities (bathing, toileting, grooming, cooking), though you will probably feel tired, and need to rest often. Avoid any heavy activity or exercise, as this will increase your body temperature. Dress in light clothing and stay covered in a light sheet. Keep the room temperature cool. Take a slightly warm (not cold or cool) bath, or apply damp washcloths to the forehead and wrists. Cough- Cough is a common symptom associated with COVID and can be bothersome. To help treat a cough: Stay well hydrated. Try warm water or tea with lemon and/or honey to help soothe the cough. Use a humidifier to add moisture to the air. Try a product with menthol, like a cough drop or a rub for your chest such as Vicks, which can help reduce cough. Try cough drops. Avoid smoking and other strong odors or perfumes. Try breathing exercises to keep your lungs open and clear. Take a big deep breath through your nose and hold for 5 seconds before slowly releasing. Repeat frequently, while you are awake. Congestion- Runny nose or nasal congestion can occur with COVID. Treatment can help relieve symptoms: Try OTC nasal saline spray, or nasal saline rinse to relieve mucus congestion. Nasal strips can help keep nasal passages open, to increase airflow. Elevating your head with an extra pillow in bed can help reduce congestion. Using a humidifier can increase moisture in the air, and make breathing easier. Sore Throat- Another common symptom with COVID, can be managed at home by: Stay well hydrated. Gargle with salt water - mix teaspoon salt with 1 cup of warm water and gargle. This helps to loosen mucus in the back of the throat and may reduce discomfort. Try ice chips, popsicles or lozenges to soothe the throat. Nausea/Vomiting/Diarrhea- These are common symptoms, and staying hydrated is most important. If you are nauseous or vomiting, start with small sips of water every 10-15 minutes and increase as tolerated. You can try sucking an ice cube too. If tolerating, you can try pedialyte or Gatorade, or flat sprite or jade-ivelisse. Start slowly and increase as you are able to. Instead of meals, try smaller, more frequent snacks. Try eating bland foods like crackers, toast, rice, and applesauce. Avoid spicy, greasy or fried foods and dairy containing foods. Even if you aren't feeling hungry due to lack of smell or taste, it is important to try to take in some food when you are able. After drinking and eating, rest in an upright position for up to two hours as needed to help decrease nauseous feelings. Try closing your eyes, avoid moving and watching TV. Avoid strong odors that can make you feel more nauseated. When to seek emergency medical attention Look for emergency warning signs for COVID-19. If having any of these symptoms, seek emergency medical care immediately: Trouble breathing Persistent pain or pressure in the chest New confusion Inability to wake or stay awake Bluish lips or face *This list is not all possible symptoms. Please call your medical provider for any other symptoms that are severe or concerning to you. documented in this encounter [facility] 01-30-2023 Note HNO ID: [id number] Author: Kvng Fair MD Service: ? Author Type: Physician Type: Progress Notes Filed: 01/30/2023 12:26 PM Note Text: Sandra Mandel is a 32 year old female who presents for problem visit. HPI: Patient presents as desires . She has been trying to conceive since July 2022. Over the past year (starting in June) she has started to skip some menses. Patient reports 2 miscarriages prior to her ectopic last year. Over the past 1.5 years she has gained 70-80 lbs. She has been trying to eat healthier. Patient was also diagnosed with prediabetes. OB History T1 L1 SAB0 IAB0 Ectopic1 Multiple0 Live Births1 Fine Sander History LMP: 10/29/2001 (Exact Date), Having periods Age at Menarche: Age at First : Age at Menopause: Fine Sander History Comments: Sexual Activity: Yes; Male; no std's; 2 clean tatoos; no transfusions Contraception: No contraception data on record PAST MEDICAL HISTORY Diagnosis Date Adjustment reaction, depressive, brief Antiphospholipid antibody syndrome (HCC) Back pain Obesity PAST SURGICAL HISTORY Procedure Laterality Date PAST SURGICAL HISTORY OF WISDOM TEETH FAMILY HISTORY Problem Relation Age of Onset Diabetes Maternal Grandfather later in life Cancer Maternal Grandfather Prostate AND bladder Hypertension Mother Stroke Paternal Grandmother Stroke Paternal Grandfather other (Sorto's esophagus [Other]) Father Psychiatry Father schizophrenia Psychiatry Brother schizophrenia Psychiatry Brother schizophrenia Cancer Father BCC skin Social History Tobacco Use Smoking status: Former Packs/day: 0.25 Years: 6.00 Additional pack years: 0.00 Total pack years: 1.50 Types: Cigarettes Quit date: 03/03/2013 Years since quittin.9 Smokeless tobacco: Never Vaping Use Vaping Use: Some days Substance Use Topics Alcohol use: Not Currently Drug use: Yes Types: Marijuana Comment: Medical Marijuana Card Current Outpatient Medications Medication Sig aspirin, enteric coated (ASPIRIN, ENTERIC COATED) 81 mg EC tablet Take 81 mg by mouth once daily. cetirizine HCl (ZYRTEC) 10 mg chewable tablet Take 10 mg by mouth once daily. As needed ibuprofen (MOTRIN) 200 mg tablet Take 200 mg by mouth every 6 hours as needed. No current facility-administered medications for this visit. Allergies As of Date: 01/30/2023 Allergen Noted Reaction MORPHINE (PF) 04/18/2022 Other: See Comments DOXYCYCLINE 03/05/2019 Rash SEASONAL ALLERGIES 10/30/2017 Intolerance MORPHINE 10/16/2022 Other: See Comments Fully Assessed 01/30/2023 Allergies and current medication updated:Yes EXAM: LMP 10/29/2001 GENERAL: pleasant, female in no apparent distress ASSESSMENT AND PLAN: 32yo female with oligomenorrhea, hirsutism AND obesity who desires Patient has PCOS and will check labs (labs completed last month AND were reviewed) Refer to weight management as recommend weight loss prior to All questions answered AND patient agrees with plan Medical Decision Making: Problems: Moderate: New problem with uncertain prognosis Data: Unique test result(s) reviewed: 3+ Risk: Low: Low risk from testing/treatment Medical Decision Making Level: 4 - Moderate Kvng Fair MD [facility] 01-30-2023 History of Presen t illness Narrative Sandra Mandel is a 32 year old female who presents for problem visit. HPI: Patient presents as desires . She has been trying to conceive since July 2022. Over the past year (starting in June) she has started to skip some menses. Patient reports 2 miscarriages prior to her ectopic last year. Over the past 1.5 years she has gained 70-80 lbs. She has been trying to eat healthier. Patient was also diagnosed with prediabetes. OB History T1 L1 SAB0 IAB0 Ectopic1 Multiple0 Live Births1 Fine Sander History LMP: 10/29/2001 (Exact Date), Having periods Age at Menarche: Age at First : Age at Menopause: Fine Sander History Comments: Sexual Activity: Yes; Male; no std's; 2 clean tatoos; no transfusions Contraception: No contraception data on record PAST MEDICAL HISTORY Diagnosis Date Adjustment reaction, depressive, brief Antiphospholipid antibody syndrome (HCC) Back pain Obesity PAST SURGICAL HISTORY Procedure Laterality Date PAST SURGICAL HISTORY OF WISDOM TEETH FAMILY HISTORY Problem Relation Age of Onset Diabetes Maternal Grandfather later in life Cancer Maternal Grandfather Prostate & bladder Hypertension Mother Stroke Paternal Grandmother Stroke Paternal Grandfather other (Sorto's esophagus [Other]) Father Psychiatry Father schizophrenia Psychiatry Brother schizophrenia Psychiatry Brother schizophrenia Cancer Father BCC skin Social History Tobacco Use Smoking status: Former Packs/day: 0.25 Years: 6.00 Additional pack years: 0.00 Total pack years: 1.50 Types: Cigarettes Quit date: 03/03/2013 Years since quittin.9 Smokeless tobacco: Never Vaping Use Vaping Use: Some days Substance Use Topics Alcohol use: Not Currently Drug use: Yes Types: Marijuana Comment: Medical Marijuana Card Current Outpatient Medications Medication Sig aspirin, enteric coated (ASPIRIN, ENTERIC COATED) 81 mg EC tablet Take 81 mg by mouth once daily. cetirizine HCl (ZYRTEC) 10 mg chewable tablet Take 10 mg by mouth once daily. As needed ibuprofen (MOTRIN) 200 mg tablet Take 200 mg by mouth every 6 hours as needed. No current facility-administered medications for this visit. Allergies As of Date: 01/30/2023 Allergen Noted Reaction MORPHINE (PF) 04/18/2022 Other: See Comments DOXYCYCLINE 03/05/2019 Rash SEASONAL ALLERGIES 10/30/2017 Intolerance MORPHINE 10/16/2022 Other: See Comments Fully Assessed 01/30/2023 Allergies and current medication updated:Yes EXAM: LMP 10/29/2001 GENERAL: pleasant, female in no apparent distress ASSESSMENT AND PLAN: 32yo female with oligomenorrhea, hirsutism & obesity who desires Patient has PCOS and will check labs (labs completed last month & were reviewed) Refer to weight management as recommend weight loss prior to All questions answered & patient agrees with plan Medical Decision Making: Problems: Moderate: New problem with uncertain prognosis Data: Unique test result(s) reviewed: 3+ Risk: Low: Low risk from testing/treatment Medical Decision Making Level: 4 - Moderate Kvng Fair MD documented in this encounter [facility] 12-31-2022 Note HNO ID: [id number] Author: Millie Santamaria APRN.RESEARCH COMPUTING SPECIALIST Service: ? Author Type: Nurse Practitioner Type: Progress Notes Filed: 12/31/2022 12:14 PM Note Text: Chief Complaint Patient presents with: Follow Up HPI Sandra Sixto Lorenzo is a 32 year old female who presents here today for Above Complaints.. Patient presents to discuss hgb a1c. Patient's hgb a1c was 5.6 in 2018. Past medical history, appointments, medications, allergies reviewed. Previous Medical History PAST MEDICAL HISTORY Diagnosis Date Adjustment reaction, depressive, brief Antiphospholipid antibody syndrome (HCC) Back pain Obesity Previous Surgical History PAST SURGICAL HISTORY Procedure Laterality Date PAST SURGICAL HISTORY OF WISDOM TEETH Family History FAMILY HISTORY Problem Relation Age of Onset Diabetes Maternal Grandfather later in life Cancer Maternal Grandfather Prostate AND bladder Hypertension Mother Stroke Paternal Grandmother Stroke Paternal Grandfather other (Sorto's esophagus [Other]) Father Psychiatry Father schizophrenia Psychiatry Brother schizophrenia Psychiatry Brother schizophrenia Cancer Father BCC skin Patient Allergies ALLERGIES Allergen Reactions Morphine (Pf) Other: See Comments migranes Doxycycline Rash Seasonal Allergies Intolerance Morphine Other: See Comments Migraines Current Medications Current Outpatient Medications on File Prior to Visit Medication Sig aspirin, enteric coated (ASPIRIN, ENTERIC COATED) 81 mg EC tablet Take 81 mg by mouth once daily. cetirizine HCl (ZYRTEC) 10 mg chewable tablet Take 10 mg by mouth once daily. As needed ibuprofen (MOTRIN) 200 mg tablet Take 200 mg by mouth every 6 hours as needed. No current facility-administered medications on file prior to visit. Social History Social History Tobacco Use Smoking status: Former Packs/day: 0.25 Years: 6.00 Additional pack years: 0.00 Total pack years: 1.50 Types: Cigarettes Quit date: 03/03/2013 Years since quittin.8 Smokeless tobacco: Never Vaping Use Vaping Use: Never used Substance Use Topics Alcohol use: Not Currently Drug use: Not Currently Types: Marijuana Review of Symptoms REVIEW OF SYSTEMS SEE HPI EXAM: BP 112/74 Pulse 86 Resp 16 Wt 134.7 kg (297 lb) LMP 10/29/2001 (Exact Date) BMI 47.94 kg/m? General Appearance: Well appearing, alert, in no acute distress, well-hydrated, well nourished.. Health Maintenance List Hepatitis C Screening Never done HPV Vaccine(2 - 3-dose series) due on 09/07/2013 Influenza Vaccine(1) due on 08/31/2023 Covid-19 Vaccine(3 - season) due on 12/21/2023 Pap Testing due on 07/26/2027 HPV Testing due on 07/26/2027 DTaP,Tdap,Td Vaccine(11 - Td or Tdap) due on 12/20/2032 Hepatitis B Vaccine Completed HIV Screening Completed ASSESSMENT/PLAN: 1. Obesity, Class III, BMI >= 40 - ICD9: 278.01, ICD10: E66.01 (primary diagnosis) Weight increasing - Behavioral intervention, - e-Coaching, - Medical nutrition therapy with dietitian, and - Eat well program 2. Weight gain - ICD9: 783.1, ICD10: R63.5 -Seeing wellness 3. Prediabetes - ICD9: 790.29, ICD10: R73.03 -Patient seeing wellness, follow up georgi Coats due to infertility issues, possible PCOS? Millie Santamaria APRN.CNP [facility] 12-31-2022 Instructions Millie Santamaria APRN.CNP - 12/31/2022 12:11 PM EDT Frederic Munoz for meal prep documented in this encounter [facility] 12-31-2022 History of Presen t illness Narrative Chief Complaint Patient presents with: Follow Up HPI Sandar Mandel is a 32 year old female who presents here today for Above Complaints.. Patient presents to discuss hgb a1c. Patient's hgb a1c was 5.6 in 2018. Past medical history, appointments, medications, allergies reviewed. Previous Medical History PAST MEDICAL HISTORY Diagnosis Date Adjustment reaction, depressive, brief Antiphospholipid antibody syndrome (HCC) Back pain Obesity Previous Surgical History PAST SURGICAL HISTORY Procedure Laterality Date PAST SURGICAL HISTORY OF WISDOM TEETH Family History FAMILY HISTORY Problem Relation Age of Onset Diabetes Maternal Grandfather later in life Cancer Maternal Grandfather Prostate & bladder Hypertension Mother Stroke Paternal Grandmother Stroke Paternal Grandfather other (Sorto's esophagus [Other]) Father Psychiatry Father schizophrenia Psychiatry Brother schizophrenia Psychiatry Brother schizophrenia Cancer Father BCC skin Patient Allergies ALLERGIES Allergen Reactions Morphine (Pf) Other: See Comments migranes Doxycycline Rash Seasonal Allergies Intolerance Morphine Other: See Comments Migraines Current Medications Current Outpatient Medications on File Prior to Visit Medication Sig aspirin, enteric coated (ASPIRIN, ENTERIC COATED) 81 mg EC tablet Take 81 mg by mouth once daily. cetirizine HCl (ZYRTEC) 10 mg chewable tablet Take 10 mg by mouth once daily. As needed ibuprofen (MOTRIN) 200 mg tablet Take 200 mg by mouth every 6 hours as needed. No current facility-administered medications on file prior to visit. Social History Social History Tobacco Use Smoking status: Former Packs/day: 0.25 Years: 6.00 Additional pack years: 0.00 Total pack years: 1.50 Types: Cigarettes Quit date: 03/03/2013 Years since quittin.8 Smokeless tobacco: Never Vaping Use Vaping Use: Never used Substance Use Topics Alcohol use: Not Currently Drug use: Not Currently Types: Marijuana Review of Symptoms REVIEW OF SYSTEMS SEE HPI EXAM: BP 112/74 Pulse 86 Resp 16 Wt 134.7 kg (297 lb) LMP 10/29/2001 (Exact Date) BMI 47.94 kg/m General Appearance: Well appearing, alert, in no acute distress, well-hydrated, well nourished.. Health Maintenance List Hepatitis C Screening Never done HPV Vaccine(2 - 3-dose series) due on 09/07/2013 Influenza Vaccine(1) due on 08/31/2023 Covid-19 Vaccine(3 - 2022- season) due on 12/21/2023 Pap Testing due on 07/26/2027 HPV Testing due on 07/26/2027 DTaP,Tdap,Td Vaccine(11 - Td or Tdap) due on 12/20/2032 Hepatitis B Vaccine Completed HIV Screening Completed ASSESSMENT/PLAN: 1. Obesity, Class III, BMI >= 40 - ICD9: 278.01, ICD10: E66.01 (primary diagnosis) Weight increasing - Behavioral intervention, - e-Coaching, - Medical nutrition therapy with dietitian, and - Eat well program 2. Weight gain - ICD9: 783.1, ICD10: R63.5 -Seeing wellness 3. Prediabetes - ICD9: 790.29, ICD10: R73.03 -Patient seeing wellness, follow up georgi Coats due to infertility issues, possible PCOS? Millie Santamaria APRN.RESEARCH COMPUTING SPECIALIST documented in this encounter [facility] 12-26-2022 Miscellaneous Notes Pt has appointment on 12/31/22 for prediabetic discussion documented in this encounter [facility] 12-24-2022 Miscellaneous Notes Spoke with pt and information listed below given. Pt verbalizes understanding. Pt scheduled apt. Ana Garcia LPN LM for pt to contact office Charlotte Grier MA Please let patient know her labs show she is prediabetic. I would like her to schedule an appointment to discuss this. documented in this encounter [facility] 12-23-2022 Note HNO ID: [id number] Author: Fariba Torres MD Service: ? Author Type: Physician Type: Progress Notes Filed: 12/23/2022 3:50 PM Note Text: This Team Access Model visit is a virtual encounter done via [employer] platform. It required patient-provider interaction for the medical decision making as documented below. At the beginning of this telehealth encounter, I verified with the patient their name and date of . I have communicated my name and active licensure ([place] and [place]) . The patient's identity and physical location were verified at the time of this visit. Either the patient or their legal environmental marketing representative has been informed of the risks and benefits of -- and alternatives to -- treatment through a remote evaluation and consents to proceed with the evaluation remotely. Patient location today- [facility] SUBJECTIVE: 32 year old female who presents for comprehensive problem evaluation. Consultation requested by Millie Santamaria APRN.CNP for an opinion regarding weight gain . My final recommendations will be communicated back to the requesting physician by way of shared medical record or letter via US mail. Sandra struggle with weight. In then last 1.5 year she had 2 miscarriages and 1 ectopic . Her father last year and she found him. She gained 60-70 lbs in the last year which she thinks is mostly due to stress. . Physical activity - started to do a lot of walking, exercise 3 times a week. Has knee pain, had knee X- ray and is always normal. Also has right foot pain, stretch it at home, is worst when standing and walking. She started to use inserts in the shoes. The pain and stiffness in the hands and feet is worst in the morning. Was diagnosed with plantar fasciitis. SARAH was negative and Lupus screening test was negative. Joint pain stayed in the last year. Has knee pain since she was in her 20s. 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 She has anti-phospholipid syndrome and for that she was started on Aspirin. When he had ectopic , was given Methotrexate and at the same time she had COVID infection, After the ectopic, she was told that she has to wait 1 year and since August this year they are trying to conceive since then. She has 11 year old daughter. Most of her adult life she was above 200 lbs. Nutrition: She believe she is lactose intolerance. She can cook with cheeses and milk, When eating dairy, she has abdominal bloating, gas. If she eats ice-cream, drink milk - she will have diarrhea, Breakfast: for years she skipped breakfast, now adding sugar free protein shake with coffee, cottage cheese, 1 hardboiled egg , coffee with with creamer Lunch: turkey sandwich, cottage cheeses, casidias on low carb wrap Dinner: meat, potato or rice In the last few months her family is transitioning to whole food diet Pasta - eat protein pasts ( not sure what it is) Try to learn to make her own bread Eat dinner between 4 and 7 PM, Do not eat after 8 PM Vegetables - usually carrots, celery and snack on them and 1 vegetable - green peas with dinner Fruits - when is season, like bananas, strawberries Water/tea/coffee: drink water throughout the day Smoking/alcohol consumption: did smoke for years, she and her partner both quit in October 2022 Bowels: daily, soft Exercise: walk, stretch the feet Sleep: sleep 7 hrs every night Stressors/Relaxation/Home/Relati onships: very emotional in the last year, she feel very emotional. Her hormones were checked recently and normal. To de-stress started to read a lot in the last year. Supplements: PNV - did it until last month at which poin she decided to take a break PAST MEDICAL HISTORY Diagnosis Date Adjustment reaction, depressive, brief Antiphospholipid antibody syndrome (HCC) Back pain Obesity PAST SURGICAL HISTORY Procedure Laterality Date PAST SURGICAL HISTORY OF WISDOM TEETH Social History Tobacco Use Smoking status: Former Packs/day: 0.25 Years: 6.00 Additional pack years: 0.00 Total pack years: 1.50 Types: Cigarettes Quit date: 03/03/2013 Years since quittin.8 Smokeless tobacco: Never Vaping Use Vaping Use: Never used Substance Use Topics Alcohol use: Not Currently Drug use: Not Currently Types: Marijuana FAMILY HISTORY Problem Relation Age of Onset Diabetes Maternal Grandfather later in life Cancer Maternal Grandfather Prostate AND bladder Hypertension Mother Stroke Paternal Grandmother Stroke Paternal Grandfather other (Sorto's esophagus [Other]) Father Psychiatry Father schizophrenia Psychiatry Brother schizophrenia Psychiatry Brother schizophrenia Cancer Father BCC skin ALLERGIES Allergen Re (more content not included)... [facility] 12-20-2022 Note HNO ID: [id number] Author: Millie Santamaria APRN.RESEARCH COMPUTING SPECIALIST Service: ? Author Type: Nurse Practitioner Type: Progress Notes Filed: 12/20/2022 9:40 AM Note Text: Chief Complaint Patient presents with: Abnormal Weight Gain HPI Sandra Mandel is a 32 year old female who presents here today for Above Complaints.. Patient presents for concerns about weight. Patient gained about 60-70 pounds over the last year. Patient has had 2 miscarriages and 1 ectopic . Patient was diagnosed with anti-phospholipid antibody syndrome. Past medical history, appointments, medications, allergies reviewed. Previous Medical History PAST MEDICAL HISTORY Diagnosis Date Adjustment reaction, depressive, brief Back pain Obesity Previous Surgical History PAST SURGICAL HISTORY Procedure Laterality Date PAST SURGICAL HISTORY OF WISDOM TEETH Family History FAMILY HISTORY Problem Relation Age of Onset Diabetes Maternal Grandfather later in life Cancer Maternal Grandfather Prostate AND bladder Hypertension Mother Stroke Paternal Grandmother Stroke Paternal Grandfather other (Sorto's esophagus [Other]) Father Psychiatry Father schizophrenia Psychiatry Brother schizophrenia Psychiatry Brother schizophrenia Cancer Father BCC skin Patient Allergies ALLERGIES Allergen Reactions Morphine (Pf) Other: See Comments migranes Doxycycline Rash Seasonal Allergies Intolerance Morphine Other: See Comments Migraines Current Medications Current Outpatient Medications on File Prior to Visit Medication Sig aspirin, enteric coated (ASPIRIN, ENTERIC COATED) 81 mg EC tablet Take 81 mg by mouth once daily. cetirizine HCl (ZYRTEC) 10 mg chewable tablet Take 10 mg by mouth once daily. As needed ibuprofen (MOTRIN) 200 mg tablet Take 200 mg by mouth every 6 hours as needed. No current facility-administered medications on file prior to visit. Social History Social History Tobacco Use Smoking status: Former Packs/day: 0.25 Years: 6.00 Additional pack years: 0.00 Total pack years: 1.50 Types: Cigarettes Quit date: 03/03/2013 Years since quittin.8 Smokeless tobacco: Never Vaping Use Vaping Use: Never used Substance Use Topics Alcohol use: Not Currently Drug use: Not Currently Types: Marijuana Review of Symptoms REVIEW OF SYSTEMS SEE HPI EXAM: BP 118/80 (BP Site: Left Arm, BP Position: Sitting, BP Cuff Size: Large Adult) Pulse 70 Temp 36.6 ?C (97.9 ?F) Resp 16 Wt 133.4 kg (294 lb) LMP 10/29/2001 (Exact Date) BMI 47.45 kg/m? General Appearance: Well appearing, alert, in no acute distress, well-hydrated, well nourished.. Lungs: Lungs clear to auscultation. No wheezing, rhonchi, rales.. Heart: RRR without murmur, gallop, or rubs. No ectopy. Health Maintenance List Pneumococcal Vaccine(1 - PCV) Never done Hepatitis C Screening Never done HPV Vaccine(2 - 3-dose series) due on 09/07/2013 DTaP,Tdap,Td Vaccine(10 - Td or Tdap) due on 03/25/2022 Influenza Vaccine(1) due on 08/31/2023 Covid-19 Vaccine(3 - 2022- season) due on 12/21/2023 Pap Testing due on 07/26/2027 HPV Testing due on 07/26/2027 Hepatitis B Vaccine Completed HIV Screening Completed ASSESSMENT/PLAN: 1. Encounter for immunization - ICD9: V03.89, ICD10: Z23 (primary diagnosis) - TDAP VACCINE, AGE 7+ YR (ADACEL, BOOSTRIX) 2. Weight gain - ICD9: 783.1, ICD10: R63.5 - CBC + DIFF - HGB A1C - TSH BLD - T3 BLD - T4 FREE/FREE THYROX - COMP METABOLIC PANEL - CONSULT TO WELLNESS PHYSICIAN Millie Santamaria APRN.[facility] 12-20-2022 History of Presen t illness Narrative Chief Complaint Patient presents with: Abnormal Weight Gain HPI Sandra Mandel is a 32 year old female who presents here today for Above Complaints.. Patient presents for concerns about weight. Patient gained about 60-70 pounds over the last year. Patient has had 2 miscarriages and 1 ectopic . Patient was diagnosed with anti-phospholipid antibody syndrome. Past medical history, appointments, medications, allergies reviewed. Previous Medical History PAST MEDICAL HISTORY Diagnosis Date Adjustment reaction, depressive, brief Back pain Obesity Previous Surgical History PAST SURGICAL HISTORY Procedure Laterality Date PAST SURGICAL HISTORY OF WISDOM TEETH Family History FAMILY HISTORY Problem Relation Age of Onset Diabetes Maternal Grandfather later in life Cancer Maternal Grandfather Prostate & bladder Hypertension Mother Stroke Paternal Grandmother Stroke Paternal Grandfather other (Sorto's esophagus [Other]) Father Psychiatry Father schizophrenia Psychiatry Brother schizophrenia Psychiatry Brother schizophrenia Cancer Father BCC skin Patient Allergies ALLERGIES Allergen Reactions Morphine (Pf) Other: See Comments migranes Doxycycline Rash Seasonal Allergies Intolerance Morphine Other: See Comments Migraines Current Medications Current Outpatient Medications on File Prior to Visit Medication Sig aspirin, enteric coated (ASPIRIN, ENTERIC COATED) 81 mg EC tablet Take 81 mg by mouth once daily. cetirizine HCl (ZYRTEC) 10 mg chewable tablet Take 10 mg by mouth once daily. As needed ibuprofen (MOTRIN) 200 mg tablet Take 200 mg by mouth every 6 hours as needed. No current facility-administered medications on file prior to visit. Social History Social History Tobacco Use Smoking status: Former Packs/day: 0.25 Years: 6.00 Additional pack years: 0.00 Total pack years: 1.50 Types: Cigarettes Quit date: 03/03/2013 Years since quittin.8 Smokeless tobacco: Never Vaping Use Vaping Use: Never used Substance Use Topics Alcohol use: Not Currently Drug use: Not Currently Types: Marijuana Review of Symptoms REVIEW OF SYSTEMS SEE HPI EXAM: BP 118/80 (BP Site: Left Arm, BP Position: Sitting, BP Cuff Size: Large Adult) Pulse 70 Temp 36.6 C (97.9 F) Resp 16 Wt 133.4 kg (294 lb) LMP 10/29/2001 (Exact Date) BMI 47.45 kg/m General Appearance: Well appearing, alert, in no acute distress, well-hydrated, well nourished.. Lungs: Lungs clear to auscultation. No wheezing, rhonchi, rales.. Heart: RRR without murmur, gallop, or rubs. No ectopy. Health Maintenance List Pneumococcal Vaccine(1 - PCV) Never done Hepatitis C Screening Never done HPV Vaccine(2 - 3-dose series) due on 09/07/2013 DTaP,Tdap,Td Vaccine(10 - Td or Tdap) due on 03/25/2022 Influenza Vaccine(1) due on 08/31/2023 Covid-19 Vaccine(3 - season) due on 12/21/2023 Pap Testing due on 07/26/2027 HPV Testing due on 07/26/2027 Hepatitis B Vaccine Completed HIV Screening Completed ASSESSMENT/PLAN: 1. Encounter for immunization - ICD9: V03.89, ICD10: Z23 (primary diagnosis) - TDAP VACCINE, AGE 7+ YR (ADACEL, BOOSTRIX) 2. Weight gain - ICD9: 783.1, ICD10: R63.5 - CBC + DIFF - HGB A1C - TSH BLD - T3 BLD - T4 FREE/FREE THYROX - COMP METABOLIC PANEL - CONSULT TO WELLNESS PHYSICIAN Millie Santamaria APRN.RESEARCH COMPUTING SPECIALIST documented in this encounter [facility] 10-16-2022 Note HNO ID: [id number] Author: Millie Santamaria APRN.RESEARCH COMPUTING SPECIALIST Service: ? Author Type: Nurse Practitioner Type: Progress Notes Filed: 10/16/2022 12:34 PM Note Text: This note was created using [email or web address]. Moris Mandel is a 32 year old female with frontal headache x4 days. Patient reports use of tylenol/ibuprofen with no resolution. Patient reports history of similar headaches. Reports mostly pressure behind bilateral eyes. Review of Systems REVIEW OF SYSTEMS GENERAL: No weight loss, malaise or fevers HEENT: Head Positive for headache frontal, Ears Positive for earaches history of otitis media without pain Objective BP 102/90 Pulse 77 Temp 36.9 ?C (98.5 ?F) Resp 16 Wt 133.4 kg (294 lb) LMP 09/25/2022 (Exact Date) SpO2 98% BMI 47.45 kg/m? Physical Exam PHYSICAL EXAMINATION: General appearance: Well appearing, alert, in no acute distress, well-hydrated, well nourished. Head: Facial tenderness frontal directly above bridge of nose Eyes: Anicteric sclera. Pupils are equally round and reactive to light. Extraocular movements are intact. Ears: Positive findings: erythema and edema of ear canal: bilaterally Nose/Sinuses: Nares normal, septum midline, mucosa normal, no drainage or sinus tenderness Neuro: Gait normal. Reflexes normal and symmetric. Sensation grossly intact. ASSESSMENT/PLAN: 1. Acute otitis media, bilateral - ICD9: 382.9, ICD10: H66.93 (primary diagnosis) - Will begin treatment with as per antibiotic as written, see orders - Supportive care with plenty of fluids, rest, and analgesia prn. - Follow up in 3-5 days if symptoms persist or worsen. - AMOXICILLIN 875 MG TABLET 2. Frontal headache - ICD9: 784.0, ICD10: R51.9 -Likely secondary sinus pressure Millie Santamaria APRN.[facility] 10-16-2022 History of Presen t illness Narrative This note was created using [email or web address]. Subjective Sandra Mandel is a 32 year old female with frontal headache x4 days. Patient reports use of tylenol/ibuprofen with no resolution. Patient reports history of similar headaches. Reports mostly pressure behind bilateral eyes. Review of Systems REVIEW OF SYSTEMS GENERAL: No weight loss, malaise or fevers HEENT: Head Positive for headache frontal, Ears Positive for earaches history of otitis media without pain Objective BP 102/90 Pulse 77 Temp 36.9 C (98.5 F) Resp 16 Wt 133.4 kg (294 lb) LMP 09/25/2022 (Exact Date) SpO2 98% BMI 47.45 kg/m Physical Exam PHYSICAL EXAMINATION: General appearance: Well appearing, alert, in no acute distress, well-hydrated, well nourished. Head: Facial tenderness frontal directly above bridge of nose Eyes: Anicteric sclera. Pupils are equally round and reactive to light. Extraocular movements are intact. Ears: Positive findings: erythema and edema of ear canal: bilaterally Nose/Sinuses: Nares normal, septum midline, mucosa normal, no drainage or sinus tenderness Neuro: Gait normal. Reflexes normal and symmetric. Sensation grossly intact. ASSESSMENT/PLAN: 1. Acute otitis media, bilateral - ICD9: 382.9, ICD10: H66.93 (primary diagnosis) - Will begin treatment with as per antibiotic as written, see orders - Supportive care with plenty of fluids, rest, and analgesia prn. - Follow up in 3-5 days if symptoms persist or worsen. - AMOXICILLIN 875 MG TABLET 2. Frontal headache - ICD9: 784.0, ICD10: R51.9 -Likely secondary sinus pressure Millie Santamaria APRN.RESEARCH COMPUTING SPECIALIST documented in this encounter [facility] 07-25-2022 Note HNO ID: [id number] Author: Marissa Paredes APRN.TIFFANY Service: ? Author Type: Nurse Practitioner Type: Progress Notes Filed: 07/25/2022 8:57 AM Note Text: Forming Mill Operator offered: Patient declines. Sandra is a 32 year old who presents for an annual gynecologic exam without complaints. Patient has been receiving care at [place] and has switch back to [facility] due to insurance reasons. Patient signed medical release to receive her records from [place]. Her and her are trying to conceive she has had 2 early SABs and 1 ectopic. She is positive AFP. She is currently taking a baby aspirin and vitamin with folic acid. They have waited 9 months since last loss and are going to start trying again. Patient is aware to contact us as soon as she has a positive test. Menses: cycles every 28-30 days and 5-6 days of flow. Contraception: condoms HPV vaccine: Yes 1 dose Last Papnormal HPV: negative History of abnormal pap: No Last mammogram: never Sexually active: Yes Pain with intercourse: No Postcoital bleeding: No OB History T1 L1 SAB0 IAB0 Ectopic0 Multiple0 Live Births1 Fine Sander History LMP: 01/12/2016, Having periods Age at Menarche: Age at First : Age at Menopause: Fine Sander History Comments: Sexual Activity: Yes; Male; no std's; 2 clean tatoos; no transfusions Contraception: Condom PAST MEDICAL HISTORY Diagnosis Date Adjustment reaction, depressive, brief Back pain Obesity PAST SURGICAL HISTORY Procedure Laterality Date PAST SURGICAL HISTORY OF WISDOM TEETH FAMILY HISTORY Problem Relation Age of Onset Diabetes Maternal Grandfather later in life Cancer Maternal Grandfather Prostate AND bladder Hypertension Mother Stroke Paternal Grandmother Stroke Paternal Grandfather other (Sorto's esophagus [Other]) Father Psychiatry Father schizophrenia Psychiatry Brother schizophrenia Psychiatry Brother schizophrenia Cancer Father BCC skin SOCIAL HISTORY Social History Tobacco Use Smoking status: Every Day Packs/day: 1.00 Years: 6.00 Pack years: 6.00 Types: Cigarettes Last attempt to quit: 03/03/2013 Years since quittin.4 Smokeless tobacco: Never Substance Use Topics Alcohol use: Yes Comment: Drinks alcohol once or twice a year. Drug use: No REVIEW OF SYSTEMS Abdomen: No abdominal pain, nausea, vomiting, diarrhea, or constipation. No bloating, early satiety, indigestion, or increased flatulence. Bladder: No dysuria, gross hematuria, urinary frequency, urinary urgency, or incontinence. Breast: No breast lumps, nipple d/c, overlying skin changes, redness or skin retraction. Allergies and current medication updated:Yes EXAM: LMP 01/12/2016 GENERAL: pleasant, female in no apparent distress HEENT: Normocephalic, atraumatic, mucus membranes moist, and no lesions NECK: Supple, full range of motion, no adenopathy, and thyroid normal DERMATOLOGY: Normal, without lesions, non-icteric, and non-hirsute BREAST: soft, non-tender, symmetric, no dominant mass, normal nipple-areolar complex, no lymphadenopathy, and no nipple discharge CHEST: Normal inspiratory effort ABDOMEN: soft, non-tender, and no masses PELVIC: external genitalia normal, normal Bartholin's glands, urethra, Reinerton's glands, no vulvar lesions, no cervical lesions, good vaginal support, physiologic discharge present, normal appearing perineal body and perianal region BIMANUAL: uterus normal size, shape and consistency, no adnexal masses, and non-tender RECTOVAGINAL: deferred. NEURO: alert and oriented x3,exam grossly non-focal EXTREMITIES: normal ASSESSMENT/PLAN: 1) Health maintenance: Pap done with HPV. Mammogram starting age 40. Nutrition, exercise and routine health maintenance exams reviewed. Calcium/Vitamin D supplementation information provided. 2) Contraception: none. Contraceptive options reviewed and information provided. 3) STD screening: Declined STD check. 4) Follow up one year or sooner as needed Marissa Paredes APRN.RESEARCH COMPUTING SPECIALIST [facility] 06-04-2022 Note HNO ID: [id number] Author: Sylvia Diana PA-C Service: ? Author Type: Physician Clinical Psychologist Private Practice Type: Progress Notes Filed: 06/04/2022 3:30 PM Note Text: This note was created using [email or web address]. Subjective Sandra Mandel is a 31 year old female. HPI Presents with a chief complaint of right ear pain with headache and dizziness x1 day. She states she has chronic congestion in the morning and that really has not changed recently. No sore throat. No significant cough. She is not dizzy right now but has had episodes off and on. She does have a history of vertigo. This does not feel as bad as that. She had seen vestibular rehab for that and every once in a while feels dizzy but not chronically. No weakness numbness or tingling. No fever. Review of Systems Constitutional: Negative for chills, fatigue and fever. HENT: Positive for congestion, ear pain and postnasal drip. Negative for ear discharge, hearing loss, sinus pressure, sinus pain, sore throat and tinnitus. Eyes: Negative. Respiratory: Negative. Cardiovascular: Negative. Gastrointestinal: Negative. Genitourinary: Negative. Musculoskeletal: Negative. Neurological: Positive for dizziness and headaches. Negative for syncope, weakness, light-headedness and numbness. All other systems reviewed and are negative. PAST MEDICAL HISTORY Diagnosis Date Adjustment reaction, depressive, brief Back pain Obesity Current Outpatient Medications Medication Sig Dispense Refill cetirizine HCl (ZYRTEC) 10 mg chewable tablet Take 10 mg by mouth once daily. ibuprofen (MOTRIN) 200 mg tablet Take 200 mg by mouth every 6 hours as needed. albuterol HFA (PROAIR HFA) 90 mcg/actuation inhaler Inhale 2 Puffs as instructed every 4 hours as needed. 1 Inhaler 0 benzonatate (TESSALON PERLE) 100 mg capsule Take 1-2 capsules tid prn (Patient not taking: Reported on 03/05/2019 ) 40 capsule 0 fluticasone propionate (FLONASE ALLERGY RELIEF NASAL) Use in the nose. (Patient not taking: Reported on 06/04/2022) No current facility-administered medications for this visit. PAST SURGICAL HISTORY Procedure Laterality Date PAST SURGICAL HISTORY OF WISDOM TEETH FAMILY HISTORY Problem Relation Age of Onset Diabetes Maternal Grandfather later in life Cancer Maternal Grandfather Prostate AND bladder Hypertension Mother Stroke Paternal Grandmother Stroke Paternal Grandfather other (Sorto's esophagus [Other]) Father Psychiatry Father schizophrenia Psychiatry Brother schizophrenia Psychiatry Brother schizophrenia Cancer Father BCC skin Social History Tobacco Use Smoking status: Every Day Packs/day: 1.00 Years: 6.00 Pack years: 6.00 Types: Cigarettes Last attempt to quit: 03/03/2013 Years since quittin.2 Smokeless tobacco: Never Substance Use Topics Alcohol use: Yes Comment: Drinks alcohol once or twice a year. Drug use: No Objective BP 108/68 Pulse 76 Temp 37.1 ?C (98.7 ?F) Resp 16 Wt 132.5 kg (292 lb) LMP 01/12/2016 SpO2 98% BMI 47.13 kg/m? Physical Exam Vitals reviewed. Constitutional: Appearance: Normal appearance. HENT: Head: Normocephalic and atraumatic. Right Ear: Tympanic membrane, ear canal and external ear normal. Left Ear: Tympanic membrane, ear canal and external ear normal. Nose: Congestion present. Mouth/Throat: Mouth: Mucous membranes are moist. Pharynx: Oropharynx is clear. No oropharyngeal exudate or posterior oropharyngeal erythema. Cardiovascular: Rate and Rhythm: Normal rate and regular rhythm. Heart sounds: Normal heart sounds. Pulmonary: Effort: Pulmonary effort is normal. Breath sounds: Normal breath sounds. Musculoskeletal: Cervical back: Neck supple. Skin: General: Skin is warm and dry. Neurological: General: No focal deficit present. Mental Status: She is alert. Assessment and Plan ASSESSMENT/PLAN: 1. Otalgia of right ear - ICD9: 388.70, ICD10: H92.01 Likely eustachian tube dysfunction. I will treat with Flonase and Zyrtec OTC. Discussed red flag symptoms to be seen in the emergency department. Patient agreeable with plan. Sylvia Diana PA-C [facility] 06-04-2022 History of Presen t illness Narrative This note was created using NoteWriter. Subjective Sandra Mandel is a 31 year old female. HPI Presents with a chief complaint of right ear pain with headache and dizziness x1 day. She states she has chronic congestion in the morning and that really has not changed recently. No sore throat. No significant cough. She is not dizzy right now but has had episodes off and on. She does have a history of vertigo. This does not feel as bad as that. She had seen vestibular rehab for that and every once in a while feels dizzy but not chronically. No weakness numbness or tingling. No fever. Review of Systems Constitutional: Negative for chills, fatigue and fever. HENT: Positive for congestion, ear pain and postnasal drip. Negative for ear discharge, hearing loss, sinus pressure, sinus pain, sore throat and tinnitus. Eyes: Negative. Respiratory: Negative. Cardiovascular: Negative. Gastrointestinal: Negative. Genitourinary: Negative. Musculoskeletal: Negative. Neurological: Positive for dizziness and headaches. Negative for syncope, weakness, light-headedness and numbness. All other systems reviewed and are negative. PAST MEDICAL HISTORY Diagnosis Date Adjustment reaction, depressive, brief Back pain Obesity Current Outpatient Medications Medication Sig Dispense Refill cetirizine HCl (ZYRTEC) 10 mg chewable tablet Take 10 mg by mouth once daily. ibuprofen (MOTRIN) 200 mg tablet Take 200 mg by mouth every 6 hours as needed. albuterol HFA (PROAIR HFA) 90 mcg/actuation inhaler Inhale 2 Puffs as instructed every 4 hours as needed. 1 Inhaler 0 benzonatate (TESSALON PERLE) 100 mg capsule Take 1-2 capsules tid prn (Patient not taking: Reported on 03/05/2019 ) 40 capsule 0 fluticasone propionate (FLONASE ALLERGY RELIEF NASAL) Use in the nose. (Patient not taking: Reported on 06/04/2022) No current facility-administered medications for this visit. PAST SURGICAL HISTORY Procedure Laterality Date PAST SURGICAL HISTORY OF WISDOM TEETH FAMILY HISTORY Problem Relation Age of Onset Diabetes Maternal Grandfather later in life Cancer Maternal Grandfather Prostate & bladder Hypertension Mother Stroke Paternal Grandmother Stroke Paternal Grandfather other (Sorto's esophagus [Other]) Father Psychiatry Father schizophrenia Psychiatry Brother schizophrenia Psychiatry Brother schizophrenia Cancer Father BCC skin Social History Tobacco Use Smoking status: Every Day Packs/day: 1.00 Years: 6.00 Pack years: 6.00 Types: Cigarettes Last attempt to quit: 03/03/2013 Years since quittin.2 Smokeless tobacco: Never Substance Use Topics Alcohol use: Yes Comment: Drinks alcohol once or twice a year. Drug use: No Objective BP 108/68 Pulse 76 Temp 37.1 C (98.7 F) Resp 16 Wt 132.5 kg (292 lb) LMP 01/12/2016 SpO2 98% BMI 47.13 kg/m Physical Exam Vitals reviewed. Constitutional: Appearance: Normal appearance. HENT: Head: Normocephalic and atraumatic. Right Ear: Tympanic membrane, ear canal and external ear normal. Left Ear: Tympanic membrane, ear canal and external ear normal. Nose: Congestion present. Mouth/Throat: Mouth: Mucous membranes are moist. Pharynx: Oropharynx is clear. No oropharyngeal exudate or posterior oropharyngeal erythema. Cardiovascular: Rate and Rhythm: Normal rate and regular rhythm. Heart sounds: Normal heart sounds. Pulmonary: Effort: Pulmonary effort is normal. Breath sounds: Normal breath sounds. Musculoskeletal: Cervical back: Neck supple. Skin: General: Skin is warm and dry. Neurological: General: No focal deficit present. Mental Status: She is alert. Assessment and Plan ASSESSMENT/PLAN: 1. Otalgia of right ear - ICD9: 388.70, ICD10: H92.01 Likely eustachian tube dysfunction. I will treat with Flonase and Zyrtec OTC. Discussed red flag symptoms to be seen in the emergency department. Patient agreeable with plan. Sylvia Diana PA-C documented in this encounter [facility] 05-01-2022 Miscellaneous Notes Discussed with patient results. + Cardiolipin IgM here same as noted outpatient. Reinforced that based on this results she still would not meet criteria for APS. However, we still recommend she receives treatment with future pregnancies with ASA + Heparin. Reviewed images from her skin with her today as well, does not look as livedo reticularis. Recommended evaluation locally by Dermatology just to be through. Aaron Huizar PGY5 Rheumatology Fellow Pager [phone] documented in this encounter [facility] 04-18-2022 Note HNO ID: [id number] Author: Maude Echavarria MD Service: ? Author Type: Physician Type: Progress Notes Filed: 04/19/2022 9:52 AM Note Text: Rheumatology Office Visit Note Date of Service: April 18, 2022 Reason for Consultation: Anti-phospholipid syndrome Consult Requested By: Self HPI: This is a 31 year old female with PMHx of Obesity who presents for evaluation of recent diagnosis of presumed APS. Background History - Patient reports she was previously in good health. Had her first child on 2011 without complications and in the past 10 years did not have any health issues. - On July 2021 she found out she was and few weeks later had a miscarriage - On August 2021 she was found to be again and a few weeks later had another miscarriage She was then evaluated in her local hospital around first week for concern of APS driving her miscarriages and reportedly was positive and started on ASA 81mg daily - Became for the third time on Oct 2021 and was started Lovenox daily. Unfortunately this resulted in an ectopic and then had to be treated with MTX starting 11/02/2021. Lovenox and ASA stopped. - On Mar 2022 she was seen by [facility] locally whom repeated blood test and Cardiolipin IgM Ab was borderline positive but rest of cardiolipins, [id number] and LAC were all negative. She was recommended to have second opinion. On evaluation today - She is doing well overall. Her main goal is to clarify diagnosis before attempting another . - Her main concerns include: hair thinning, polyarthralgia, intermittent skin changes that she believes looks like livedo reticularis but otherwise denies other rashes, oral/nasal ulcers, sicca symptoms, pleurisy, raynaud's. - No history of prior DVTs or other trombosis. - No family history of autoimmune connective tissue diseases Social Hx: - Smokes half a pack a day for at least 10 years - Sporadic marihuana use PAST MEDICAL HISTORY Diagnosis Date Adjustment reaction, depressive, brief Back pain Obesity PAST SURGICAL HISTORY Procedure Laterality Date PAST SURGICAL HISTORY OF WISDOM TEETH FAMILY HISTORY Problem Relation Age of Onset Diabetes Maternal Grandfather later in life Cancer Maternal Grandfather Prostate AND bladder Hypertension Mother Stroke Paternal Grandmother Stroke Paternal Grandfather other (Sorto's esophagus [Other]) Father Psychiatry Father schizophrenia Psychiatry Brother schizophrenia Psychiatry Brother schizophrenia Cancer Father BCC skin Social History Tobacco Use Smoking status: Every Day Packs/day: 1.00 Years: 6.00 Pack years: 6.00 Types: Cigarettes Last attempt to quit: 03/03/2013 Years since quittin.1 Smokeless tobacco: Never Substance Use Topics Alcohol use: Yes Comment: Drinks alcohol once or twice a year. Drug use: No Current Outpatient Medications Medication Sig cetirizine HCl (ZYRTEC) 10 mg chewable tablet Take 10 mg by mouth once daily. fluticasone propionate (FLONASE ALLERGY RELIEF NASAL) Use in the nose. ibuprofen (MOTRIN) 200 mg tablet Take 200 mg by mouth every 6 hours as needed. albuterol HFA (PROAIR HFA) 90 mcg/actuation inhaler Inhale 2 Puffs as instructed every 4 hours as needed. benzonatate (TESSALON PERLE) 100 mg capsule Take 1-2 capsules tid prn (Patient not taking: Reported on 03/05/2019 ) DULoxetine (CYMBALTA) 60 mg capsule Take 60 mg by mouth. buPROPion XL (WELLBUTRIN XL) 150 mg 24 hr tablet Take 1 tablet by mouth once daily. (Patient not taking: Reported on 11/04/2017 ) No current facility-administered medications for this visit. PHQ-9 01/17/2016 04/17/2022 PHQ-2 Score 0 1 Health Maintenance: - Vaccinated with COVID-19 (first 2 shots) Review Of Systems: GENERAL: negative for, malaise, fatigue, night sweats FEVER: none WEIGHT CHANGE: has gained 20 pounds since last miscarriage HEAD: negative for, scalp tenderness, jaw claudication, headache, tongue claudication, temporal tenderness ENT: negative for, nasal crusting, epistaxis, bloody nasal drainage, sore throat, difficulty swallowing, mouth lesions, voice changes EYES: negative for , pain bilateral, redness bilateral, visual blurring bilateral NECK: negative for, pain, swelling RESPIRATORY: negative for, cough, sputum production, hemoptysis, wheezing, shortness of breath, pleuritic chest pain CARDIOVASCULAR: negative for, chest pain, palpitations, digital ischemia, Raynaud's GASTROINTESTINAL: negative for, abdominal pain, nausea, BRBPR, black stools, change in bowel habit, vomiting, diarrhea MUSCULOSKELETAL: joint pain NEUROLOGIC: negative for, numbness and weakness SKIN: livedo PHQ9 PHQ-9 01/17/2016 04/17/2022 PHQ-2 Score 0 1 Reference Values for PHQ9 0 - 4: Minimal Depression 5 - 9: Mild Depression 10 - 14: Moderate Depression 15 - 19: Moderately Severe Depression 20 - 27: Severe Depression (more content not included)... [facility] 04-18-2022 History of Presen t illness Narrative Images from the original note were not included. Rheumatology Office Visit Note Date of Service: April 18, 2022 Reason for Consultation: Anti-phospholipid syndrome Consult Requested By: Self HPI: This is a 31 year old female with PMHx of Obesity who presents for evaluation of recent diagnosis of presumed APS. Background History - Patient reports she was previously in good health. Had her first child on 2011 without complications and in the past 10 years did not have any health issues. - On July 2021 she found out she was and few weeks later had a miscarriage - On August 2021 she was found to be again and a few weeks later had another miscarriage She was then evaluated in her local hospital around first week for concern of APS driving her miscarriages and reportedly was positive and started on ASA 81mg daily - Became for the third time on Oct 2021 and was started Lovenox daily. Unfortunately this resulted in an ectopic and then had to be treated with MTX starting 11/02/2021. Lovenox and ASA stopped. - On Mar 2022 she was seen by Fine [facility] locally whom repeated blood test and Cardiolipin IgM Ab was borderline positive but rest of cardiolipins, [id number] and LAC were all negative. She was recommended to have second opinion. On evaluation today - She is doing well overall. Her main goal is to clarify diagnosis before attempting another . - Her main concerns include: hair thinning, polyarthralgia, intermittent skin changes that she believes looks like livedo reticularis but otherwise denies other rashes, oral/nasal ulcers, sicca symptoms, pleurisy, raynaud's. - No history of prior DVTs or other trombosis. - No family history of autoimmune connective tissue diseases Social Hx: - Smokes half a pack a day for at least 10 years - Sporadic marihuana use PAST MEDICAL HISTORY Diagnosis Date Adjustment reaction, depressive, brief Back pain Obesity PAST SURGICAL HISTORY Procedure Laterality Date PAST SURGICAL HISTORY OF WISDOM TEETH FAMILY HISTORY Problem Relation Age of Onset Diabetes Maternal Grandfather later in life Cancer Maternal Grandfather Prostate & bladder Hypertension Mother Stroke Paternal Grandmother Stroke Paternal Grandfather other (Sorto's esophagus [Other]) Father Psychiatry Father schizophrenia Psychiatry Brother schizophrenia Psychiatry Brother schizophrenia Cancer Father BCC skin Social History Tobacco Use Smoking status: Every Day Packs/day: 1.00 Years: 6.00 Pack years: 6.00 Types: Cigarettes Last attempt to quit: 03/03/2013 Years since quittin.1 Smokeless tobacco: Never Substance Use Topics Alcohol use: Yes Comment: Drinks alcohol once or twice a year. Drug use: No Current Outpatient Medications Medication Sig cetirizine HCl (ZYRTEC) 10 mg chewable tablet Take 10 mg by mouth once daily. fluticasone propionate (FLONASE ALLERGY RELIEF NASAL) Use in the nose. ibuprofen (MOTRIN) 200 mg tablet Take 200 mg by mouth every 6 hours as needed. albuterol HFA (PROAIR HFA) 90 mcg/actuation inhaler Inhale 2 Puffs as instructed every 4 hours as needed. benzonatate (TESSALON PERLE) 100 mg capsule Take 1-2 capsules tid prn (Patient not taking: Reported on 03/05/2019 ) DULoxetine (CYMBALTA) 60 mg capsule Take 60 mg by mouth. buPROPion XL (WELLBUTRIN XL) 150 mg 24 hr tablet Take 1 tablet by mouth once daily. (Patient not taking: Reported on 11/04/2017 ) No current facility-administered medications for this visit. PHQ-9 01/17/2016 04/17/2022 PHQ-2 Score 0 1 Health Maintenance: - Vaccinated with COVID-19 (first 2 shots) Review Of Systems: GENERAL: negative for, malaise, fatigue, night sweats FEVER: none WEIGHT CHANGE: has gained 20 pounds since last miscarriage HEAD: negative for, scalp tenderness, jaw claudication, headache, tongue claudication, temporal tenderness ENT: negative for, nasal crusting, epistaxis, bloody nasal drainage, sore throat, difficulty swallowing, mouth lesions, voice changes EYES: negative for , pain bilateral, redness bilateral, visual blurring bilateral NECK: negative for, pain, swelling RESPIRATORY: negative for, cough, sputum production, hemoptysis, wheezing, shortness of breath, pleuritic chest pain CARDIOVASCULAR: negative for, chest pain, palpitations, digital ischemia, Raynaud's GASTROINTESTINAL: negative for, abdominal pain, nausea, BRBPR, black stools, change in bowel habit, vomiting, diarrhea MUSCULOSKELETAL: joint pain NEUROLOGIC: negative for, numbness and weakness SKIN: livedo PHQ9 PHQ-9 01/17/2016 04/17/2022 PHQ-2 Score 0 1 Reference Values for PHQ9 0 - 4: Minimal Depression 5 - 9: Mild Depression 10 - 14: Moderate Depression 15 - 19: Moderately Severe Depression 20 - 27: Severe Depression Physical Exam: BP 118/76 Pulse 78 Ht 167.6 cm (5' 6 ) Wt 131.1 kg (289 lb) LMP 01/12/2016 BMI 46.65 kg/m Physical Exam Constitutional: Appearance: She is obese. HENT: Head: Normocephalic and atraumatic. Nose: Nose normal. Mouth/Throat: Mouth: Mucous membranes are moist. Pharynx: Oropharynx is clear. Eyes: Extraocular Movements: Extraocular movements intact. Conjunctiva/sclera: Conjunctivae normal. Pupils: Pupils are equal, round, and reactive to light. Cardiovascular: Rate and Rhythm: Normal rate and regular rhythm. Pulses: Normal pulses. Heart sounds: Normal heart sounds. Pulmonary: Effort: Pulmonary effort is normal. Breath sounds: Normal breath sounds. Musculoskeletal: General: No swelling or tenderness. Normal range of motion. Cervical back: Normal range of motion and neck supple. Right lower leg: No edema. Left lower leg: No edema. Skin: General: Skin is warm. Capillary Refill: Capillary refill takes less than 2 seconds. Findings: No rash. Neurological: General: No focal deficit present. Mental Status: She is oriented to person, place, and time. Psychiatric: Mood and Affect: Mood normal. Behavior: Behavior normal. Labs: RELEVANT PREVIOUS INVESTIGATIONS Urinalysis Latest Ref Rng & Units 05/08/2011 05/22/2011 05/29/2011 06/05/2011 PROTEIN, URINE Neg mg/dL neg neg neg neg CBC Latest Ref Rng & Units 11/22/2010 03/27/2011 04/22/2013 11/30/2013 WBC 4.8 - 10.8 thou/cmm - - 7.69 7.1 HGB 12.0 - 16.0 g/dL - - - 13.8 HEMOGLOBIN 11.5 - 15.5 g/dL - - 12.5 - HEMOGLOBIN, ANN 11.5 - 15.5 g/dL 12.6 12.2 - - HEMATOCRIT 37.0 - 47.0 % - - 39.1 41.3 PLATELETS 150 - 400 thou/cmm - - 217 182 ABS NEUT (ANC) 1.45 - 7.50 k/uL - - 5.02 - ABS NEUT, ANN 1.45 - 7.50 k/uL 3.69 5.26 - - ABS LYMP, ANN 1.00 - 4.00 k/uL 1.69 1.54 - - ABS LYMPH 1.00 - 4.00 k/uL - - 1.78 - CMP Latest Ref Rng & Units 03/27/2011 04/22/2013 11/30/2013 SODIUM 136 - 145 mEq/L - 139 139 POTASSIUM 3.5 - 5.1 mEq/L - 4.0 3.7 CHLORIDE 98 - 107 mEq/L - 103 105 CO2 21 - 32 mEq/L - 26 28 GLUCOSE 70 - 99 mg/dL - 88 118(H) GLUCOSE, ANN 65 - 135 mg/dL 89 - - BUN 7 - 25 mg/dL - 8 10 CREATININE 0.51 - 0.95 mg/dL - 0.72 0.80 CALCIUM, TOTAL 8.5 - 10.1 mg/dL - 9.4 9.1 AST 7 - 40 U/L - 17 - ALT 0 - 45 U/L - 21 - ALKALINE PHOSPHATASE 40 - 150 U/L - 50 - Antibodies Latest Ref Rng & Units 04/18/2022 PT SEC 9.7 - 13.0 sec 10.3 PT INR 0.9 - 1.3 1.0 PTT 23.0 - 32.4 sec 27.6 Hepatitis Screen Latest Ref Rng & Units 11/22/2010 HBSAG NEGAT Negative Last Lupus Anticoag Panel Interpretation No lab values to display. Imaging: Reviewed Assessment: In summary, this is a 31 year old female with PMHx of Obesity who presents for evaluation of recent diagnosis of presumed APS. R76.0 Antiphospholipid antibody positive (primary encounter diagnosis) Patient presents with history of 2 recent spontaneous miscarriages in the setting of positive anticardiolipin IgM antibody raising the question of antiphospholipid syndrome. However, she currently does not meet sapporo classification criteria for APS considering she has not had three or more consecutive spontaneous losses at <10 weeks gestation and her only positive test is a low titer anti-cardiolipin Ab IgM. Nevertheless, we will repeat APS labs here and also focus in ruling out SLE which can be seen in conjunction with this condition. Moving forward, and considering her history, we would still favor the use of ASA + therapeutic Lovenox in future pregnancies. Emphasized importance of smoking cessation and weight loss as these both can also be contributors to clotting/miscarriages. Plan: - Check LAP, B2 glycoprotein, cardiolipin Abs - Check SARAH by IFA and UA. - No contraindication from our standpoint to proceed with another but discuss with local FINISHED CARPET INSPECTOR use of ASA + therapeutic Lovenox when . - Follow up TBD Aaron Huizar PGY5 Rheumatology Fellow Pager [phone] Patient seen and discussed with Rheumatology staff, Dr. Maude Echavarria STAFF NOTE I have seen and examined the patient. I have reviewed the lab and imaging data. I agree with the history, exam, assessment and plan as outlined above. Maude Echavarria MD documented in this encounter [facility] Diagnosis Otalgia of right ear- Primary Otalgia, unspecified [facility] Diagnosis Acute otitis media, bilateral- Primary Unspecified otitis media Frontal headache Headache [facility] Diagnosis Encounter for immunization- Primary Need for other specified prophylactic vaccination against single bacterial disease Weight gain Abnormal weight gain [facility] Diagnosis Scabies- Primary [facility] this [facility]* Diagnosis Obesity, Class III, BMI >= 40- Primary Morbid obesity Weight gain Abnormal weight gain Prediabetes Other abnormal glucose [facility] Diagnosis Oligomenorrhea, unspecified type- Primary Hirsutism Obesity, unspecified classification, unspecified obesity type, unspecified whether serious comorbidity present [facility] this [facility] Diagnosis COVID-19 virus infection- Primary documented in this encounter [facility] Summary Purpose Family History No Family History Records FoundNo Family History Records FoundNo Family History Records FoundNo Family History Records Found Advance Directives No Advanced Directives Records FoundNo Advanced Directives Records FoundNo Advanced Directives Records FoundNo Advanced Directives Records Found Reason for Referral Specialty Diagnoses / Procedures Referred By Contac t Referred To Contact Diagnoses Weight gain Procedures CONSULT TO WELLNESS PHYSICIAN OFFICE/OUTPATIENT [facility] 60-74 MINUTES Millie Santamaria APRN.RESEARCH COMPUTING SPECIALIST [address] [place] [address] Referral ID Status Reason Start Date Expiration Date Visits Requested Visits Authorized [id number] Pending Review PCP Requested Referral 3 12/20/2023 1 1 Additional Source Comments INFORMATION SOURCE (unrecogn ized section and content) DATE CREATED AUTHOR AUTHOR'S ORGANIZ ATION 08/27/2017 [facility] DATE CREATED AUTHOR AUTHOR'S ORGANIZ ATION 01/23/2018 [facility] DATE CREATED AUTHOR AUTHOR'S ORGANIZ ATION 03/01/2023 [facility] Source Comments (unrecognize d section and content) In the event this informatio n is protected by the Federal Confidentiality of Alcohol and Drug Abuse Patient Records regulations: The Federal rules restrict any use of the information to criminally investigate or prosecute any alcohol or drug abuse patient.[facility] the event this information is protected by the Federal Confidentiality of Alcohol and Drug Abuse Patient Records regulations: The Federal rules restrict any use of the information to criminally investigate or prosecute any alcohol or drug abuse patient.[facility] the event this information is protected by the Federal Confidentiality of Alcohol and Drug Abuse Patient Records regulations: The Federal rules restrict any use of the information to criminally investigate or prosecute any alcohol or drug abuse patient.[facility] the event this information is protected by the Federal Confidentiality of Alcohol and Drug Abuse Patient Records regulations: The Federal rules restrict any use of the information to criminally investigate or prosecute any alcohol or drug abuse patient.[facility] the event this information is protected by the Federal Confidentiality of Alcohol and Drug Abuse Patient Records regulations: The Federal rules restrict any use of the information to criminally investigate or prosecute any alcohol or drug abuse patient.[facility] the event this information is protected by the Federal Confidentiality of Alcohol and Drug Abuse Patient Records regulations: The Federal rules restrict any use of the information to criminally investigate or prosecute any alcohol or drug abuse patient.[facility] Center[facility] the event this information is protected by the Federal Confidentiality of Alcohol and Drug Abuse Patient Records regulations: The Federal rules restrict any use of the information to criminally investigate or prosecute any alcohol or drug abuse patient.[facility] Center[facility] the event this information is protected by the Federal Confidentiality of Alcohol and Drug Abuse Patient Records regulations: The Federal rules restrict any use of the information to criminally investigate or prosecute any alcohol or drug abuse patient.[facility] Center[facility] the event this information is protected by the Federal Confidentiality of Alcohol and Drug Abuse Patient Records regulations: The Federal rules restrict any use of the information to criminally investigate or prosecute any alcohol or drug abuse patient.[facility] Center[facility] the event this information is protected by the Federal Confidentiality of Alcohol and Drug Abuse Patient Records regulations: The Federal rules restrict any use of the information to criminally investigate or prosecute any alcohol or drug abuse patient.[facility] Center[facility] the event this information is protected by the Federal Confidentiality of Alcohol and Drug Abuse Patient Records regulations: The Federal rules restrict any use of the information to criminally investigate or prosecute any alcohol or drug abuse patient.[facility] Care Teams (unrecognized sec tion and content) Refrigeration Lead Relationship Specialty Start Date End Date Miranda Reyes MD [address] [place] [address] PCP - General Family Medicine 08/08/18 Refrigeration Lead Relationship Specialty Start Date End Date Miranda Reyes MD [address] [place] [address] PCP - General Family Medicine 08/08/18 Refrigeration Lead Relationship Specialty Start Date End Date Miranda Reyes MD [address] [place] [address] PCP - General Family Medicine 08/08/18 Refrigeration Lead Relationship Specialty Start Date End Date Miranda Reyes MD [address] [place] [address] PCP - General Family Medicine 08/08/18 Refrigeration Lead Relationship Specialty Start Date End Date Miranda Reyes MD [address] [place] [address] PCP - General Family Medicine 08/08/18 Refrigeration Lead Relationship Specialty Start Date End Date Miranda Reyes MD [address] [place] [address] PCP - General Family Medicine 08/08/18 Refrigeration Lead Relationship Specialty Start Date End Date Miranda Reyes MD [address] [place], [place] [id number] PCP - General Family Medicine 08/08/18 Refrigeration Lead Relationship Specialty Start Date End Date Miranda Ryees MD [address] [place], [place] [address] PCP - General Family Medicine 08/08/18 Refrigeration Lead Relationship Specialty Start Date End Date Miranda Reyes MD [address] [place] [address] PCP - General Family Medicine 08/08/18 Reason for Visit (unrecogniz ed section and content) Reason Comments Ear Pain Right ear with ELMUS an d dizziness x 1 day Reason Comments Opened In Error Reason Comments Headache X 4 days, dizziness Reason Comments Abnormal Weight Gain Reason Comments Follow Up Reason Comments Discussion Reason Comments Sinus Problem Cough Chest cold FOR RECORDS PERTAINING TO PATIENTS WHO ARE OR HAVE BEEN ENROLLED IN A CHEMICAL DEPENDENCY/SUBSTANCEABUSE PROGRAM, SOME INFORMATION MAY BE OMITTED. This clinical summary was aggregated from multiple sources. Caution should be exercised in using it in the provision of clinical care. This summary normalizes information from multiple sources, and as a consequence, information in this document may materially change the coding, format and clinical context of patient data. In addition, data may be omitted in some cases. CLINICAL DECISIONS SHOULD BE BASED ON THE PRIMARY CLINICAL RECORDS. [facility] [employer] [facility]. provides no warranty or guarantee of the accuracy or completeness of information in this document.
[2023-03-04 13:26] LABS: hCG Titer Quant., Serum 2656 mIU/mL (1-3)
== END | disposition home or self-care (01) ==
PROVIDERS: PCP Family Medicine; Referring Provider Registered Nurse; Visit Provider Registered Nurse
DX: N91.2 Amenorrhea, unspecified (principal)
CPT/HCPCS: 36415; 84702

== ENCOUNTER → 2023-03-06 | Outpatient (CLI) | payer OTHER, SELFPAY ==
[2023-03-06 11:55] LABS: hCG Titer Quant., Serum 3933 mIU/mL (1-3)
== END | disposition home or self-care (01) ==
PROVIDERS: PCP Family Medicine; Referring Provider Registered Nurse; Visit Provider Registered Nurse
DX: N96 Recurrent pregnancy loss (principal)
CPT/HCPCS: 36415; 84702

== ENCOUNTER → 2023-03-10 | Outpatient (CLI) | payer OTHER, SELFPAY ==
--- NOTE | 2023-03-10 07:49 | US_ITS ---
INDICATION: Amenorrhea -- A2 E1 -- HX OF 1 ECTOPIC EXAMINATION: Ultrasound US OB Transvaginal TECHNIQUE: Transabdominal pelvic ultrasound was performed. Grayscale, spectral waveform, and color flow Doppler evaluation of the adnexa. COMPARISON: Prior study dated: November 07, 2021 LMP: [January 10, 2023 FINDINGS: UTERUS: 10.7 x 5.0 x 5.5 cm. There is nabothian cysts visualized. RIGHT OVARY: 3.5 x 2.7 x 2.2 cm. There appears to be a corpus luteal cyst within the right ovary. LEFT OVARY: 2.4 x 2.9 x 2.0 cm. Normal. FREE FLUID: None. INTRAUTERINE GESTATIONAL SAC: Single. The mean sac diameter measures 1.2 cm. YOLK SAC: No yolk sac is visualized. POLE: No pole is identified. ESTIMATED GESTATION AGE: 6 weeks and 0 days. PLACENTA: Not visualized due to age. SUBCHORIONIC HEMORRHAGE: There is a 1.0 x 0.9 x 0.8 cm subchorionic fluid collection AMNIOTIC FLUID: Qualitatively normal. US/Transvaginal w/Preg US IMPRESSION: Finding suggestive of an early uterine with no yolk sac nor pole identified. Consider short interval follow-up ultrasound with corresponding beta-hCG levels. 1.0 x 0.9 x 0.8 cm subchorionic hemorrhage. Electronically Signed: Rahel Laird MD at 9:28 EST ,
--- OUTSIDE RECORDS SUMMARY | 2023-03-10 08:07 | XMS RPT_ITS | CCD ---
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 borderline positive but rest of cardiolipins, [id number] and LAC were all negative. She was [...] proceed with another but discuss with local RADIO DIRECTOR use of ASA + therapeutic Lovenox when . - Follow up TBD Aaron Huizar PGY5 Rheumatology Fellow Pager [phone] Patient seen and discussed with Rheumatology staff, Dr. Maude Echavarria STAFF NOTE I have seen and examined the patient. I have reviewed the lab and imaging data. I agree with the history, exam, assessment and plan as outlined above. Maude Echavarria MD documented in this encounter [facility] Otalgia of right ear- Primary Otalgia, unspecified [facility] Diagnosis Acute otitis media, bilateral- Primary Unspecified otitis media Frontal headache Headache [facility] Diagnosis Encounter for immunization- Primary Need for other specified prophylactic vaccination against single bacterial disease Weight gain Abnormal weight gain [facility] Diagnosis Scabies- Primary [facility]* Diagnosis Obesity, Class III, BMI >= 40- Primary Morbid obesity Weight gain Abnormal weight gain Prediabetes Other abnormal glucose [facility] Diagnosis Oligomenorrhea, unspecified type- Primary Hirsutism Obesity, unspecified classification, unspecified obesity type, unspecified whether serious comorbidity present [facility] Diagnosis COVID-19 virus infection- Primary documented in this encounter [facility] Summary Purpose Family History No Family History Records FoundNo Family History Records FoundNo Family History Records FoundNo Family History Records Found Advance Directives No Advanced Directives Records FoundNo Advanced Directives Records FoundNo Advanced Directives Records FoundNo Advanced Directives Records Found Reason for Referral Specialty Diagnoses / Procedures Referred By Contgilmer t Referred To Contact Diagnoses Weight gain Procedures CONSULT TO WELLNESS PHYSICIAN OFFICE/OUTPATIENT [facility] 60-74 MINUTES Millie Santamaria APRN.MARKETING ADMINISTRATIVE ASSISTANT [address] [place] [address] Referral ID Status Reason Start Date Expiration Date Visits Requested Visits Authorized [id number] Pending Review PCP Requested Referral 3 12/20/2023 1 1 Additional Source Comments INFORMATION SOURCE (unrecogn ized section and content) DATE CREATED AUTHOR AUTHOR'S ORGANIZ ATION 08/27/2017 [facility] DATE CREATED AUTHOR AUTHOR'S ORGANIZ ATION 01/23/2018 [facility] DATE CREATED AUTHOR AUTHOR'S ORGANIZ ATION 03/06/2023 [facility] Source Comments (unrecognize d section and content) In the event this informatio n is protected by the Federal Confidentiality of Alcohol and Drug Abuse Patient Records regulations: The Federal rules restrict any use of the information to criminally investigate or prosecute any alcohol or drug abuse patient.[facility] the event this information is protected by the Federal Confidentiality of Alcohol and Drug Abuse Patient Records regulations: The Federal rules restrict any use of the information to criminally investigate or prosecute any alcohol or drug abuse patient.[facility] the event this information is protected by the Federal Confidentiality of Alcohol and Drug Abuse Patient Records regulations: The Federal rules restrict any use of the information to criminally investigate or prosecute any alcohol or drug abuse patient.[facility] the event this information is protected by the Federal Confidentiality of Alcohol and Drug Abuse Patient Records regulations: The Federal rules restrict any use of the information to criminally investigate or prosecute any alcohol or drug abuse patient.[facility] the event this information is protected by the Federal Confidentiality of Alcohol and Drug Abuse Patient Records regulations: The Federal rules restrict any use of the information to criminally investigate or prosecute any alcohol or drug abuse patient.[facility] the event this information is protected by the Federal Confidentiality of Alcohol and Drug Abuse Patient Records regulations: The Federal rules restrict any use of the information to criminally investigate or prosecute any alcohol or drug abuse patient.[facility] System[facility] the event this information is protected by the Federal Confidentiality of Alcohol and Drug Abuse Patient Records regulations: The Federal rules restrict any use of the information to criminally investigate or prosecute any alcohol or drug abuse patient.[facility] the event this information is protected by the Federal Confidentiality of Alcohol and Drug Abuse Patient Records regulations: The Federal rules restrict any use of the information to criminally investigate or prosecute any alcohol or drug abuse patient.[facility] the event this information is protected by the Federal Confidentiality of Alcohol and Drug Abuse Patient Records regulations: The Federal rules restrict any use of the information to criminally investigate or prosecute any alcohol or drug abuse patient.[facility] the event this information is protected by the Federal Confidentiality of Alcohol and Drug Abuse Patient Records regulations: The Federal rules restrict any use of the information to criminally investigate or prosecute any alcohol or drug abuse patient.[facility] System[facility] the event this information is protected by the Federal Confidentiality of Alcohol and Drug Abuse Patient Records regulations: The Federal rules restrict any use of the information to criminally investigate or prosecute any alcohol or drug abuse patient.[facility] Care Teams (unrecognized sec tion and content) Shaper Hand Relationship Specialty Start Date End Date Miranda Reyes MD [address] [place] [address] PCP - General Family Medicine 08/08/18 Shaper Hand Relationship Specialty Start Date End Date Miranda Reyes MD [address] [place] [address] PCP - General Family Medicine 08/08/18 Shaper Hand Relationship Specialty Start Date End Date Miranda Reyes MD [address] [place] [address] PCP - General Family Medicine 08/08/18 Shaper Hand Relationship Specialty Start Date End Date Miranda Reyes MD [address] [place] [address] PCP - General Family Medicine 08/08/18 Shaper Hand Relationship Specialty Start Date End Date Miranda Reyes MD [address] [place] [address] PCP - General Family Medicine 08/08/18 Shaper Hand Relationship Specialty Start Date End Date Miedel, Miranda E, MD [address] [place] [address] PCP - General Family Medicine 08/08/18 Shaper Hand Relationship Specialty Start Date End Date Miranda Reyes MD [address] [place], [place] [address] PCP - General Family Medicine 08/08/18 Shaper Hand Relationship Specialty Start Date End Date Miranda Reyes MD [address] [place], [place] [id number] PCP - General Family Medicine 08/08/18 Shaper Hand Relationship Specialty Start Date End Date Miranda Reyes MD [address] [place] [address] PCP - General Family Medicine 08/08/18 Reason for Visit (unrecogniz ed section and content) Reason Comments Ear Pain Right ear with LEMUS an d dizziness x 1 day Reason [...] BE BASED ON THE PRIMARY CLINICAL RECORDS. [email or web address] [facility]. provides no warranty or guarantee of the accuracy or completeness of information in this document.
== END | disposition home or self-care (01) ==
PROVIDERS: PCP Family Medicine; Referring Provider Registered Nurse; Visit Provider Registered Nurse
DX: N91.2 Amenorrhea, unspecified (principal)
CPT/HCPCS: 76817

== ENCOUNTER → 2023-03-12 | Outpatient (CLI) | payer OTHER, SELFPAY ==
[2023-03-12 13:26] LABS: Absolute Lymphocyte Count 2.51 X10^3/uL (0.83-4.51); Absolute Neutrophil Count 5.6 X10^3/uL (2.0-7.7); Basophil# 0.06 X10^3/uL; Basophil% 0.7 % (0-1); Eosinophil# 0.16 X10^3/uL; Eosinophils% 1.8 % (0-5); Hematocrit 40.8 % (37-47); Lymphocyte # 2.51 X10^3/ul (0.83-4.51); Lymphocyte % 27.9 % (19-41); Mean Corp Hgb Conc 31.9 g/dL (32-36); Mean Corpuscular Hgb 27.1 pg (27.0-32.0); Mean Corpuscular Volume 85.2 fL (81-99); Mean Platelet Vol. 12.2 fl (6.2-12.0); Monocyte# 0.69 X10^3/uL; Monocyte% 7.7 % (0-10); NRBC Flagged by Analyzer 0 % (0-5); Neutrophil # 5.57 X10^3/uL (2.7-7.7); Neutrophil % 61.7 % (47-70); Platelet Count 231 K/mm3 (150-450); RBC Distribution Width CV 13.6 % (11.6-14.6); RBC Distribution Width SD 41.9 fl (35.1-43.9); Red Blood Count 4.79 M/mm3 (4.2-5.4)
[2023-03-12 14:28] LABS: hCG Titer Quant., Serum 10334 mIU/mL (1-3)
[2023-03-12 15:07] LABS: Amphetamine Urine VISTA NEGATIVE (<1000 ng/mL); Barbiturate Urine VISTA NEGATIVE (< 200 ng/mL); Benzodiazepine Urine VISTA NEGATIVE (< 200 ng/mL); Cocaine Urine VISTA NEGATIVE (< 300 ng/mL); Ecstacy Urine VISTA NEGATIVE (< 500 ng/mL); Methadone Urine VISTA NEGATIVE (< 300 ng/mL); PCP Urine VISTA NEGATIVE (< 25 ng/mL); THC Urine VISTA NEGATIVE (< 50 ng/mL); Vista UDS pH Range 7
== END | disposition home or self-care (01) ==
PROVIDERS: Referring Provider Registered Nurse; Visit Provider Registered Nurse
DX: Z34.90 Encounter for supervision of normal pregnancy, unspecified, unspecified trimester (principal); Z79.899 Other long term (current) drug therapy
CPT/HCPCS: 36415; 80307; 84702; 85025; 87086; 87088

== ENCOUNTER → 2023-03-31 | Outpatient (CLI) | payer OTHER, SELFPAY ==
--- OUTSIDE RECORDS SUMMARY | 2023-03-31 11:00 | XMS RPT_ITS | CCD ---
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 [...] gain Procedures CONSULT TO WELLNESS PHYSICIAN OFFICE/OUTPATIENT [facility] 60-74 MINUTES Millie Santamaria APRN.ADVERTISING COPYWRITER [address] [place] [address] Referral ID Status Reason Start Date Expiration Date Visits Requested Visits Authorized [id number] Pending Review PCP Requested Referral 3 12/20/2023 1 1 Additional Source Comments INFORMATION SOURCE (unrecogn ized section and content) DATE CREATED AUTHOR AUTHOR'S ORGANIZ ATION 08/27/2017 [facility] DATE CREATED AUTHOR AUTHOR'S ORGANIZ ATION 01/23/2018 [facility] DATE CREATED AUTHOR AUTHOR'S ORGANIZ ATION 03/06/2023 [facility] Source Comments (unrecognize d section and content) In the event this informatio n is protected by the Federal Confidentiality of Alcohol and Drug Abuse Patient Records regulations: The Federal rules restrict any use of the information to criminally investigate or prosecute any alcohol or drug abuse patient.[facility] the event this information is protected by the Federal Confidentiality of Alcohol and Drug Abuse Patient Records regulations: The Federal rules restrict any use of the information to criminally investigate or prosecute any alcohol or drug abuse patient.[facility] the event this information is protected by the Federal Confidentiality of Alcohol and Drug Abuse Patient Records regulations: The Federal rules restrict any use of the information to criminally investigate or prosecute any alcohol or drug abuse patient.[facility] the event this information is protected by the Federal Confidentiality of Alcohol and Drug Abuse Patient Records regulations: The Federal rules restrict any use of the information to criminally investigate or prosecute any alcohol or drug abuse patient.[facility] the event this information is protected by the Federal Confidentiality of Alcohol and Drug Abuse Patient Records regulations: The Federal rules restrict any use of the information to criminally investigate or prosecute any alcohol or drug abuse patient.[facility] the event this information is protected by the Federal Confidentiality of Alcohol and Drug Abuse Patient Records regulations: The Federal rules restrict any use of the information to criminally investigate or prosecute any alcohol or drug abuse patient.[facility] Center[facility] the event this information is protected by the Federal Confidentiality of Alcohol and Drug Abuse Patient Records regulations: The Federal rules restrict any use of the information to criminally investigate or prosecute any alcohol or drug abuse patient.[facility] Center[facility] the event this information is protected by the Federal Confidentiality of Alcohol and Drug Abuse Patient Records regulations: The Federal rules restrict any use of the information to criminally investigate or prosecute any alcohol or drug abuse patient.[facility] the event this information is protected by the Federal Confidentiality of Alcohol and Drug Abuse Patient Records regulations: The Federal rules restrict any use of the information to criminally investigate or prosecute any alcohol or drug abuse patient.[facility] the event this information is protected by the Federal Confidentiality of Alcohol and Drug Abuse Patient Records regulations: The Federal rules restrict any use of the information to criminally investigate or prosecute any alcohol or drug abuse patient.[facility] Center[facility] the event this information is protected by the Federal Confidentiality of Alcohol and Drug Abuse Patient Records regulations: The Federal rules restrict any use of the information to criminally investigate or prosecute any alcohol or drug abuse patient.[facility] Care Teams (unrecognized sec tion and content) Instructor Dramatic Arts Relationship Specialty Start Date End Date Miranda Reyes MD [address] [place] [address] PCP - General Family Medicine 08/08/18 Instructor Dramatic Arts Relationship Specialty Start Date End Date Miranda Reyes MD [address] [place] [address] PCP - General Family Medicine 08/08/18 Instructor Dramatic Arts Relationship Specialty Start Date End Date Miranda Reyes MD [address] [place] [address] PCP - General Family Medicine 08/08/18 Instructor Dramatic Arts Relationship Specialty Start Date End Date Miranda Reyes MD [address] [place] [address] PCP - General Family Medicine 08/08/18 Instructor Dramatic Arts Relationship Specialty Start Date End Date Miranda Reyes MD [address] [place] [address] PCP - General Family Medicine 08/08/18 Instructor Dramatic Arts Relationship Specialty Start Date End Date Miedel, Miranda E, MD [address] [place] [address] PCP - General Family Medicine 08/08/18 Instructor Dramatic Arts Relationship Specialty Start Date End Date Miranda Reyes MD [address] [place], [place] [address] PCP - General Family Medicine 08/08/18 Instructor Dramatic Arts Relationship Specialty Start Date End Date Miranda Reyes MD [address] [place], [place] [address] PCP - General Family Medicine 08/08/18 Instructor Dramatic Arts Relationship Specialty Start Date End Date Miranda Reyes MD [address] [place] [address] PCP - General Family Medicine 08/08/18 Reason [...] BE BASED ON THE PRIMARY CLINICAL RECORDS. [facility]. provides no warranty or guarantee of the accuracy or completeness of information in this document.
== END | disposition home or self-care (01) ==
LOC: PAVLAB 10:20
PROVIDERS: Referring Provider Obstetrics & Gynecology; Visit Provider Obstetrics & Gynecology
DX: O26.899 Other specified pregnancy related conditions, unspecified trimester (principal); Z67.91 Unspecified blood type, Rh negative; Z3A.00 Weeks of gestation of pregnancy not specified
CPT/HCPCS: 36415; 86850; 86900; 86901

== ENCOUNTER 2023-04-04 10:29 | Day surgery (SDC) | payer OTHER, SELFPAY ==
[2023-04-04] VITALS (7 sets, daily range): BP systolic 107–147; BP diastolic 60–110; PULSE 79–86; RESP 16–18; TEMP 36.3–37.1; O2SAT 95–100; BMI 48.9
--- NOTE | 2023-04-04 10:25 | PCM.HP.BLA ---
History and Physical Date of Admission: 04/04/23 Vital Signs 03/31/2410:41 04/04/2406:54 04/04/2406:55 Height 5 ft 6 in 5 ft 6 in 5 ft 6 in Weight: 302 lb BMI 48.7 BP 127/82 H Intake Visit Reasons: repeat scan, ok per [employer]asting Required: No Is patient in pain?: No Allergies doxycycline Allergy (Intermediate, Verified 04/04/23 07:54) Rashmorphine Allergy (Verified 04/04/23 07:54) Other Medications PNV 153-FA 400 mcg-om3 35 mg-dha 25 mg-epa 5 mg-fish oil chew tablet tab PO 03/07/23 [History Confirmed 04/04/23] enoxaparin 40 mg/0.4 mL subcutaneous syringe (Lovenox) 40 mg (0.4 mL) subcut DAILY #12 mL 03/12/23 [Rx Confirmed 04/04/23] misoprostol 200 mcg tablet (Cytotec) 800 mcg (4 x 200 mcg) PO .complex #8 tabs 03/27/23 [Rx Confirmed 04/04/23] naproxen 500 mg tablet 500 mg PO Q12H #20 tabs 03/27/23 [Rx Confirmed 04/04/23] Is last menstrual period known: No Post menopausal: No Patient : No : No PFSH Medical History (Updated 04/04/23 @ 08:[address] 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 current occupational exposures/hazards: No pets and animals: Yes (not managing litterbox) pets and animals: cat(s) and dog(s) history of recent travel: No sexually active: Yes Smoking Status: Former smoker Tobacco: How many years used: 10 alcohol intake: current alcohol intake frequency: holidays/special occasions only details: not while substance use type: does not use and marijuana diet: lactose free and other well-balanced diet: daily or most days caffeine: Yes Type: coffee Number of servings: 1 eating out: rarely or never during the past year weight has: decreased > 10 lbs what type of physical activity do you participate in: walking frequency: 3-4 times per week duration: 15-30 minutes/day lily/nondenominational: None seatbelt use: always do you feel safe at home: Yes additional social history: [facility] HPI repeat scan, ok per Details: GISELLE VENTURA is a 32 year old who presents for follow up early miscarriage, s/p cytotec x 2, had heavy bleeding and passed multiple clots, US today shows persistent piece of tissue at top of uterus with blood flow. no fevers. she feels exhausted and crampy, open to d and c for retained products. History 5 Elective abortions Hx Para 1 Spontaneous abortions 3 Hx # Term Pregnancies Ectopic pregnancies 1 Hx # Pregnancies Multiple births # of living children 1 Past Pregnancies Del. Date Name GA/Weeks Outcome Route Bth Weight Gen Labor Lgth Anesthesia Del Locatn Provider FOB Unknown 07/2021 miscarriage 4 spontaneous Unknown August 2021 miscarriage 4 spontaneous 06/09/11 Roby Nueñzford III 38 live - full term 7#13oz Male epidural [facility] Roby Flores Jr 11/04/22 ectopic 4 ectopic Delivery Date: 11/04/22 Last Updated by: Tereza Guzman methotrexate ROS Const Constitutional: Reports as per HPI; Denies fever(s) ENT ENT: Reports system reviewed and no additional complaints, except as documented Cardio Card: Reports system reviewed and no additional complaints, except as documented Resp Resp: Reports system reviewed and no additional complaints, except as documented GI GI: Reports as per HPI : Reports as per HPI Musc Musc: Reports system reviewed and no additional complaints, except as documented Skin Skin/Breast: Reports system reviewed and no additional complaints, except as documented Neuro Neuro: Reports system reviewed and no additional complaints, except as documented Endo Endo: Reports system reviewed and no additional complaints, except as documented Exam Const General: healthy appearing, comfortable and no acute distress HENMT Head: normal to inspection and normocephalic Neck Neck: no lymphadenopathy noted Thyroid: thyroid normal Chest Chest palpation & inspection: normal inspection of the chest Resp Effort & Inspection: normal respiratory effort Cardio Rate: regular rate Rhythm: regular rhythm GI Inspection: normal to inspection Palpation: soft and nontender External Female Exam: normal external appearance Speculum Exam - Vagina: normal appearance of the vagina and vaginal bleeding Bimanual Exam- Vagina & Uterus: uterine shape normal and non-tender OB/External & Speculum: vaginal bleeding Speculum Exam: vaginal bleeding Skin General: no rashes or lesions noted Neuro General: no focal motor deficits Extrem General: normal to inspection and no pedal edema Psych Appearance: grossly normal Coding Level of Care Code Off vis,est,level 4 Diagnoses Retained products of conception Missed O02.1 Assessment and Plan Assessment and Plan (1) Retained products of conception: Status: Acute Comment: proceed with d and c (2) Missed : Status: Acute Comment: s/p cytotec x 2 proceed with d and c Plan After discussing the patient's diagnosis and treatment plan options, patient wishes to proceed with surgical management. I have discussed with the patient the risks, benefits, and alternatives of the procedure which include but are not limited to risks of anesthesia, bleeding, infection, possible damage to bowel, bladder, or surrounding vasculature which could lead to additional surgery to evaluate any complications. Patient agrees to procedure and wishes to proceed. ACOG/uptodate references given for additional information regarding procedure.
[2023-04-04] MEDS: Lactated Ringers 1,000 ML 15 ML IV (11:27)
[2023-04-04 11:35] LABS: Absolute Neutrophil Count 4.1 X10^3/uL (2.0-7.7); Basophil# 0.04 X10^3/uL; Basophil% 0.6 % (0-1); Eosinophil# 0.19 X10^3/uL; Eosinophils% 2.8 % (0-5); Hematocrit 39.1 % (37-47); Hemoglobin 12.5 g/dL (12.0-15.0); Lymphocyte % 30.7 % (19-41); Mean Corpuscular Hgb 27.1 pg (27.0-32.0); Mean Corpuscular Volume 84.6 fL (81-99); Mean Platelet Vol. 11.4 fl (6.2-12.0); Monocyte# 0.38 X10^3/uL; Monocyte% 5.6 % (0-10); NRBC Flagged by Analyzer 0 % (0-5); Neutrophil % 59.9 % (47-70); Platelet Count 230 K/mm3 (150-450); RBC Distribution Width CV 13.4 % (11.6-14.6); RBC Distribution Width SD 41.2 fl (35.1-43.9); Red Blood Count 4.62 M/mm3 (4.2-5.4); White Blood Count 6.8 K/mm3 (4.4-11.0)
--- NOTE | 2023-04-04 12:30 | POC_PTH ---
PATHOLOGY RESULTS PATIENT: SANDRA VENTURA [place] [facility] [id number] AGE/SX: 32/F ROOM: RE04/04/[address]: Dr. Zoya Love MD : 1990 BED: DIS: 04/04/2023 SPEC #: [id number] RECD: 04/07/23 07:23 STATUS: SANDRA REZan #: [id number] SCARLETT: 04/04/23 12:[address]: Zoya Love DEPT: SURGICAL PATHOLOGY RECD BY: Sandra Beckett ENTERED: 04/07/23 07:23 SP TYPE: PROD CONC OTHR DR: No Primary Care Phys Tissues: Product of conception, NOS Procedures: Surgery Specimen Level IV HEADER OPERATION: Suction dilation and curettage PRE-OP DIAGNOSIS: Retained products of conception, missed TISSUE SUBMITTED: Products of conception MICROSCOPIC DIAGNOSIS Products of conception, dilation and curettage: [place], benign endometrial tissue with focal area of gestational endometrium and trophoblastic cells. Fragments of benign ecto- and endocervical mucosa. See comment. KINDRA:oral 04/08/2023 COMMENT Chorionic villi are not identified. The entire specimen is submitted. Clinical correlation and appropriate follow up are necessary. Case has been reviewed in consultation with Dr. Myers who concurs with the above diagnosis. IDC:AM MICROSCOPIC DESCRIPTION Slides are reviewed. GROSS DESCRIPTION Received in fixative is one container labeled with the patient's name and designated products of conception. The specimen consists of multiple fragments of hemorrhagic soft tissue that in aggregate measure 7.5 x 3.0 x 0.3 cm. No tissue is identified. The entire specimen is submitted in three cassettes. / KINDRA:oral 04/07/2023 TC:5 CPT: 41091
[2023-04-04] MEDS: Lidocaine 1% (20 ml mdv) 20 ML Vial (13:00)
--- NOTE | 2023-04-04 13:24 | DCINST_ITS ---
Discharge Instructions Diet Discharge Diet: No restrictions Activity Discharge Activity: Return to Normal Activity, May Shower and May Take a Tub Bath (after 1 week) May resume sexual activity in: 1-2 weeks Weight Bearing Status: Weight bearing as tolerated Lifting Restrictions: none Dressing / Incision Call your doctor if you observe: Fever of 101 or Higher, Using more than 1 pad per hour, Shortness of breath and Uncontrolled pain Follow Up Care Please Follow Up With: Zoya Love MD When: Call [phone] to schedule appointment. Test Results: Test results from this visit will be discussed in further detail at your follow- up appointment, if applicable. Discharge Plan Admission Attending Provider: Zoya Love Primary Care Provider: Care PhysicianMaegan Primary Discharge Orders/Prescriptions Prescriptions: No Action PNV no.[id number] 400 mcg-35 mg- 25 mg-5 mg tablet,chewable 1 tab PO enoxaparin [Lovenox] 40 mg/0.4 mL syringe 40 mg subcut DAILY Qty: 12 12RF misoprostol [Cytotec] 200 mcg tablet 800 mcg PO .complex Qty: 8 1RF Rx Instructions: 4 tablets orally and then repeat in 24-48 hours naproxen 500 mg tablet 500 mg PO Q12H Qty: 20 0RF Referrals / Follow Up: Care Physician,No Primary [Primary Care Provider] - Disposition Disposition (needs filled in before D/C Order can be placed): Home, Self Care
--- NOTE | 2023-04-04 13:24 | OP.PCM_ITS ---
Problems Associated Problem List Diagnoses (1) Retained products of conception: (2) Missed : Report of Operation Date of Procedure: 04/04/23 Pre-Operative Diagnosis: see problem list Post-Operative Diagnosis: same Surgery/Procedure Performed:: Suction dilation and curettage Description of Surgical Findings:: no FHT present, Nonviable 6 weeks Surgeon: Zoya Love head athletic trainer/strength coach: None Type of Anesthesia: Local MAC Special Medications: none Specimen's removed: POC Drains: none Estimated Blood Loss (mL): 50 Fluids Replaced: crystalloid Description of Procedure: Patient was taken to the operating room and placed under MAC local anesthesia. She was prepped and draped in the normal sterile fashion the dorsal lithotomy position. Bladder was drained of clear urine and anterior lip of the cervix was grasped and the uterus sounded to 8 cm. Cervix was progressively dilated to allow passage of a 8 cm suction curette. Progressive passes were made removing the retained products of conception without complication. Sharp curettage confirmed complete removal of the retained products. All instruments were removed from the vagina and excellent hemostasis was noted and the patient was taken to recovery in stable condition. Grafts/Implants Used: none Procedure Start Time: 12:39 Procedure Stop Time: 13:16 Complications none Admit VTE Documentation VTE Present on Admission: No VTE Mechan Device Prophylaxis: SCD's Procedures Urinary/Genital 52xxx-59xxx: 34300 Trmt of incomplete Ab, any TM
[2023-04-04] MEDS: Oxycodone/Apap 5/325 Tablet PO (14:19)
== END 2023-04-04 14:54 | disposition home or self-care (01) ==
LOC: SDC 10:31 → AC 10:32
PROVIDERS: Referring Provider Obstetrics & Gynecology; Visit Provider Obstetrics & Gynecology
PROC: (CPT 59812; principal; 2023-04-04 12:20)
DX: O02.1 Missed abortion (principal); Z87.891 Personal history of nicotine dependence; N96 Recurrent pregnancy loss
CPT/HCPCS: 59812; 01965; 85025; 86850; 86900; 86901; 88305; J7120; J2405

== ENCOUNTER → 2023-04-15 | Outpatient (CLI) | payer OTHER, SELFPAY ==
[2023-04-19 05:07] LABS: Anti-Cardiolipin Ab, IgA, Qn < 9 APL U/mL (0-11); Anti-Cardiolipin Ab, IgG, Qn < 9 GPL U/mL (0-14); Anti-Cardiolipin Ab, IgM, Qn < 9 MPL U/mL (0-12); Beta-2-Glycoprotein I IgA <9 (0-25); Beta-2-Glycoprotein I IgG <9 (0-20); Beta-2-Glycoprotein I IgM 9 (0-32); Dilute Prothrombin Time (dPT) 43.3 sec (0.0-47.6); Hexagonal Phase Phospholipid 2 5 sec (0-11); Interpretation Comment: (.); PTT-LA 48.9 sec (0.0-43.5); PTT-LA Mix 42.4 sec (0.0-40.5); Thrombin Time 18.7 sec (0.0-23.0); dPT Confirm Ratio 0.96 Ratio (0.00-1.34)
== END | disposition home or self-care (01) ==
LOC: PAVLAB 13:08
PROVIDERS: Referring Provider Obstetrics & Gynecology; Visit Provider Obstetrics & Gynecology
DX: N96 Recurrent pregnancy loss (principal); D68.61 Antiphospholipid syndrome
CPT/HCPCS: 36415; 86146; 86147